=== PATIENT | female | born 1975 | race African-American/Black ===

== ENCOUNTER 2020-05-14 08:32 | Outpatient (REF) | payer MEDICAID, SELFPAY | END 2020-05-14 08:33 | disposition home or self-care (01) | LOC: HO.SCI 08:32 | DX: Z13.89 Encounter for screening for other disorder (principal) ==

== ENCOUNTER 2020-10-02 10:08 | Outpatient (REF) | payer MEDICAID, SELFPAY ==
--- NOTE | ~2020-10-02 | MM_ITS ---
EXAMINATION: MM SCREENING DIGITAL BREAST TOMOSYNTHESIS, BILATERAL CLINICAL INFORMATION: Screening. Asymptomatic. Family history breast cancer, maternal grandmother. The lifetime risk of breast cancer based on the Tyrer-Cuzick Model is 11%. COMPARISON: Report outside exam from [facility] dated 11/26/2016 and 09/04/2015 (outside images not received to date). TECHNIQUE: Digital breast tomosynthesis is performed in both the craniocaudal and mediolateral oblique views along with computer-aided detection (CAD). Synthesized 2D images are generated from the tomosynthesis. FINDINGS: The breasts are heterogeneously dense, which may obscure small masses (ACR BI-RADS breast composition Category c). Breast tissue composition borders on average fibroglandular. There is fine fibronodular parenchymal pattern. There is no significant mass or architectural abnormality. Some scattered vascular and round and rim predominantly dermal calcifications are present. The axilla and skin contours are unremarkable. MM/MM tomosynthesis screening BI IMPRESSION: No mammographic evidence of malignancy. ASSESSMENT: BI-RADS 2: Benign RECOMMENDATION: 1. Routine annual mammography screening. 2. Radiology department will attempt to retrieve outside mammography to allow for comparison in an addendum report. This patient's information was entered into a reminder system with a target due date for their next mammogram.
== END 2020-10-02 10:09 | disposition home or self-care (01) ==
LOC: HO.MAMMO 10:08
PROVIDERS: PCP Nurse Practitioner Family; Visit Provider Nurse Practitioner Family
DX: Z12.31 Encounter for screening mammogram for malignant neoplasm of breast (principal)
CPT/HCPCS: 77063; 77067

== ENCOUNTER 2020-12-12 14:50 | Outpatient (REF) | payer MEDICAID, SELFPAY ==
[2020-12-12 16:58] LABS: Blood Urea Nitrogen 10 mg/dL (9-16); Estimated Glomerular Filt Rate > 60
== END 2020-12-12 14:51 | disposition home or self-care (01) ==
LOC: HO.MRI 14:50
PROVIDERS: PCP Nurse Practitioner Family; Visit Provider Nurse Practitioner Family
DX: G35 Multiple sclerosis (principal); Z86.69 Personal history of other diseases of the nervous system and sense organs
CPT/HCPCS: 36415; 82565; 84520

== ENCOUNTER 2020-12-17 17:29 | Outpatient (REF) | payer MEDICAID, SELFPAY ==
--- NOTE | ~2020-12-17 | MR_ITS ---
EXAMINATION: MR BRAIN WITHOUT AND WITH CONTRAST CLINICAL INFORMATION: 45-year-old with complaints of headache, occipital numbness and decreased vision with positive family history of MS and epilepsy. COMPARISON: None. TECHNIQUE: Multiplanar, multisequence MRI of the brain was obtained before and after the intravenous administration of 8 mL Gadavist. FINDINGS: Brain Volume: Within normal limits. Structural: No malformations. Brain and Meninges: DWI sequence demonstrates no restricted diffusion to suggest acute or subacute cerebral ischemia. The brain is normal in morphology and signal intensity. Gradient echo imaging demonstrates no evidence for hemorrhage, hemosiderin staining or abnormal mineral deposition. No intracranial mass lesions, abnormal enhancement, space-occupying process or mass effect are identified. Ventricles and Subarachnoid Spaces: The ventricular system and subarachnoid spaces are within normal limits, without hydrocephalus. Orbital Structures: The globes have a slightly ovoid appearance which is nonspecific but could be secondary to myopia. There is a moderate degree of bilateral proptosis, which is nonspecific. Otherwise, the visualized orbital structures are grossly unremarkable within the limitations of the study. Vascular: There is somewhat asymmetrically diminished signal void in the right cavernous carotid artery, the significance of which is uncertain. MRA suggested to further assess this. Otherwise, signal voids are seen in the visualized major intracranial vessels. Sinuses and Osseous Structures: There is mucosal thickening in the ethmoid complex and maxillary sinuses bilaterally and there is a 2.1 cm retention cyst in the left maxillary sinus. Osseous structures appear grossly unremarkable. There is a subcentimeter round zone of intermediate T1 signal which appears isointense to muscle on T1 and hypointense on T2 located in the left prestyloid parapharyngeal space medial to the deep lobe of the left parotid gland. MR/MR head/brain wo/w con IMPRESSION: 1. Normal appearance to the brain parenchyma and ventricular system with no evidence for focal lesion or abnormal enhancement, mass effect, hydrocephalus or hemorrhage. 2. Somewhat diminished signal void in the right cavernous carotid artery which may be artifactual but MRA is suggested to further assess this. 3. Paranasal sinus inflammatory changes as discussed above. 4. Subcentimeter nodular structure in the prestyloid parapharyngeal space on the left incidentally noted. Differential diagnostic considerations could include an incidental minor salivary gland tumor or possibly a nerve sheath tumor. MRI of the soft tissue neck without and with contrast is recommended to further assess this. 5. Bilateral proptosis and globe deformities. Recommend ophthalmologic correlation. The [facility] staff will call to confirm receipt of this report with acknowledgement of the findings and any recommendations.
== END 2020-12-17 17:30 | disposition home or self-care (01) ==
LOC: HO.MRI 17:29
PROVIDERS: Visit Provider Nurse Practitioner Family
DX: R29.898 Other symptoms and signs involving the musculoskeletal system (principal); Z82.0 Family history of epilepsy and other diseases of the nervous system
CPT/HCPCS: 70553; A9585

== ENCOUNTER 2021-02-26 16:58 | Outpatient (REF) | payer MEDICAID, SELFPAY ==
--- NOTE | ~2021-02-26 | MR_ITS ---
EXAMINATION: MR ANGIOGRAPHY BRAIN WITHOUT CONTRAST CLINICAL INFORMATION: Undergoing follow-up study to previous examination suggesting diminished signal void in the right cavernous carotid artery. COMPARISON: 12/23/2020 MRI TECHNIQUE: 3-D [id number] MR angiography of the intracranial circulation was done. FINDINGS: Anterior Circulation: The horizontal petrous segments of both intracranial internal carotid arteries are symmetric and normal in caliber with good flow-related enhancement. There is mildly to moderately diminished caliber of the vertical petrous, precavernous, cavernous, ophthalmic, and supraclinoid segments of the right ICA when compared to the left without significant focal stenosis or segmental occlusion. Small zones of signal loss are seen within the carotid siphon on the right which are likely artifactual. A small PCOM infundibulum is noted with good visualization of the right posterior communicating artery which otherwise appears normal. The left intracranial internal carotid artery is normal in caliber throughout with foci of curvilinear signal loss in the ophthalmic segment likely artifactual. The left posterior communicating artery is visualized and appears normal. Both A1 segments are visualized with the left being dominant with a normal appearance to the anterior communicating artery and both A2 segments. The M1 segments are bilaterally symmetric and are normal in caliber with a normal appearance to the M2 branches. Posterior Circulation: The intradural vertebral arteries are partially cut off from the [id number]. The visualized portions of the intradural vertebral arteries are normal in caliber with the left being dominant. The basilar artery is smoothly contoured and normal in caliber with a normal appearance to the superior cerebellar and posterior cerebral arteries bilaterally. No intracranial aneurysms or high flow vascular malformations. MR/MR angio head wo con IMPRESSION: 1. No evidence for right ICA significant stenosis or occlusion. The caliber of the right carotid siphon is mildly to moderately diminished compared to the left, the significance of which is uncertain as there is no definite significant luminal irregularity to suggest atheromatous plaque. 2. Otherwise normal intracranial MRA.
--- NOTE | ~2021-02-26 | MR_ITS ---
EXAMINATION: MRI SOFT TISSUE NECK WITHOUT AND WITH CONTRAST CLINICAL INFORMATION: Anesthesia of skin and cervicalgia with visual disturbances. COMPARISON: 12/17/2020 MR brain. TECHNIQUE: MRI of the soft tissue neck was obtained using routine sequences without and with contrast. Intravenous contrast: Gadavist 8 mL. FINDINGS: SKULL BASE: The visualized intracranial structures are within normal limits and demonstrate no abnormal enhancement. Skull base structures appear grossly intact within the limitations of the study. There is mucosal thickening in the right maxillary sinus similar to the previous exam and there is a 2.3 cm probable retention cyst in the left maxillary sinus, which was noted on prior study. SUPRAHYOID NECK: Redemonstrated is a T1 hypointense nodule measuring approximately 6.5 x 8 mm in greatest transaxial dimensions, which appears to be located within the deep lobe of the left parotid gland and displays enhancement at its periphery with a central focus of hypoenhancement, consistent with a parotid neoplasm. There has been no significant interval change in size from the previous study. The trigeminal fat pads appear normal in signal. Small lateral retropharyngeal lymph nodes are noted which are not pathologically enlarged. The nasopharynx, snowsport instructor and parapharyngeal spaces are otherwise unremarkable. The right parotid gland is normal in morphology and signal intensity. The oropharynx, oral tongue, base of the tongue and floor of the mouth structures are within normal limits. The submandibular glands appear within normal limits. There are multiple nonenlarged lymph nodes in the submandibular space bilaterally and right submental space. There are multiple nonenlarged bilateral suprahyoid IJ chain lymph nodes at levels IIa and IIb. There is a single mildly prominent 12 x 5 mm level IIb lymph node on the left. The epiglottis and vallecula appear normal. INFRAHYOID NECK: The hypopharynx, larynx and thyroid gland are within normal limits. There is a 1.1 x 0.7 cm enlarged upper right paratracheal lymph node posterior to the right thyroid lobe. VASCULAR: Signal voids are seen within the visualized major arterial vessels within the neck and within the IJ veins. UPPER CHEST: The visualized upper thorax appears grossly unremarkable within the limitations of the study. SKELETAL: Osseous structures appear unremarkable. OTHER COMMENTS: None. MR/MR orbits face neck wo/w con IMPRESSION: 1. Subcentimeter enhancing nodule in the deep lobe of the left parotid gland consistent with a small parotid neoplasm. Suggest ENT consultation for further workup. 2. Mildly enlarged level IIb lymph node on the left and a mildly enlarged upper right paratracheal lymph node posterior to the right thyroid lobe of indeterminate significance. Recommend follow-up CT of the neck with contrast to reassess in 6 months. 3. Paranasal sinus findings as discussed above.
[2021-02-26 17:25] LABS: Anion Gap 11 (12-20); Blood Urea Nitrogen 11 mg/dL (9-16); Calcium 9.1 mg/dL (8.4-10.2); Carbon Dioxide 26 mmol/L (22-29); Chloride 104 mmol/L (96-108); Estimated Glomerular Filt Rate > 60; Glucose Random 110 mg/dL (60-115); Potassium 3.9 mmol/L (3.3-5.1); Sodium 137 mmol/L (135-145)
== END 2021-02-26 16:59 | disposition home or self-care (01) ==
LOC: HO.MRI 16:58
PROVIDERS: PCP Nurse Practitioner Family; Visit Provider Nurse Practitioner Family
DX: M54.2 Cervicalgia (principal); R29.898 Other symptoms and signs involving the musculoskeletal system; Z82.0 Family history of epilepsy and other diseases of the nervous system; R20.0 Anesthesia of skin; H53.9 Unspecified visual disturbance
CPT/HCPCS: 36415; 70543; 70544; 80048; A9585

== ENCOUNTER 2021-04-16 16:14 | Outpatient (REF) | payer MEDICAID, SELFPAY ==
--- NOTE | ~2021-04-16 | XR_ITS ---
EXAMINATION: XR CHEST CLINICAL INFORMATION: Nonspecific reaction to drug. COMPARISON: None TECHNIQUE: 2 views of the chest were obtained. FINDINGS: No significant abnormality is noted involving the heart, lungs, mediastinum, bony thorax or soft tissues. XR/XR chest 2V IMPRESSION: Unremarkable chest examination.
== END 2021-04-16 16:15 | disposition home or self-care (01) ==
LOC: HO.XRAY 16:14
PROVIDERS: PCP Nurse Practitioner Family; Visit Provider Nurse Practitioner Family
DX: R76.12 Nonspecific reaction to cell mediated immunity measurement of gamma interferon antigen response without active tuberculosis (principal)
CPT/HCPCS: 71046

== ENCOUNTER 2021-11-28 16:56 | Outpatient (REF) | payer MEDICAID, SELFPAY ==
--- NOTE | ~2021-11-28 | XR_ITS ---
EXAMINATION: 1. RADIOGRAPHS LUMBAR SPINE 2. RADIOGRAPHS RIGHT HIP 3. RADIOGRAPHS LEFT HIP CLINICAL INFORMATION: Pain within the lumbar spine and both hips COMPARISON: None TECHNIQUE: 3 views of the lumbar spine and 2 views of each hip were obtained. FINDINGS: Lumbar spine: 5 nonrib-bearing lumbar vertebral bodies are visualized. Alignment is within normal limits. Lumbar vertebral body heights are maintained. Mild narrowing of the L4/L5 disc space height. Other disc space heights are maintained throughout the lumbar spine. Sacral iliac joints are symmetric. Right hip: Visualized portion of the proximal right femur demonstrate no fracture. Right femoral head is well-seated within the acetabulum. Right femoral acetabular joint space is well-maintained. There is a prominent enthesophyte off the lateral aspect of the right ilium although it appears superior to the acetabulum and likely not affecting the right acetabular joint. Left hip: Visualized portion of proximal left femur demonstrate no fracture. Left femoral head is well-seated within the acetabulum. Left femoral acetabular joint space is well-maintained. No appreciable degenerative changes of the left hip. XR/XR hip LT min 2V IMPRESSION: -Mild degenerative changes of the lumbar spine at the L4/L5 level. -No significant degenerative changes, fracture or dislocation of either hip.
--- NOTE | ~2021-11-28 | XR_ITS ---
EXAMINATION: 1. RADIOGRAPHS LUMBAR SPINE 2. RADIOGRAPHS RIGHT HIP 3. RADIOGRAPHS LEFT HIP CLINICAL INFORMATION: Pain within the lumbar spine and both hips COMPARISON: None TECHNIQUE: 3 views of the lumbar spine and 2 views of each hip were obtained. FINDINGS: Lumbar spine: 5 nonrib-bearing lumbar vertebral bodies are visualized. Alignment is within normal limits. Lumbar vertebral body heights are maintained. Mild narrowing of the L4/L5 disc space height. Other disc space heights are maintained throughout the lumbar spine. Sacral iliac joints are symmetric. Right hip: Visualized portion of the proximal right femur demonstrate no fracture. Right femoral head is well-seated within the acetabulum. Right femoral acetabular joint space is well-maintained. There is a prominent enthesophyte off the lateral aspect of the right ilium although it appears superior to the acetabulum and likely not affecting the right acetabular joint. Left hip: Visualized portion of proximal left femur demonstrate no fracture. Left femoral head is well-seated within the acetabulum. Left femoral acetabular joint space is well-maintained. No appreciable degenerative changes of the left hip. XR/XR lumbar spine 2-3V IMPRESSION: -Mild degenerative changes of the lumbar spine at the L4/L5 level. -No significant degenerative changes, fracture or dislocation of either hip.
--- NOTE | ~2021-11-28 | XR_ITS ---
EXAMINATION: 1. RADIOGRAPHS LUMBAR SPINE 2. RADIOGRAPHS RIGHT HIP 3. RADIOGRAPHS LEFT HIP CLINICAL INFORMATION: Pain within the lumbar spine and both hips COMPARISON: None TECHNIQUE: 3 views of the lumbar spine and 2 views of each hip were obtained. FINDINGS: Lumbar spine: 5 nonrib-bearing lumbar vertebral bodies are visualized. Alignment is within normal limits. Lumbar vertebral body heights are maintained. Mild narrowing of the L4/L5 disc space height. Other disc space heights are maintained throughout the lumbar spine. Sacral iliac joints are symmetric. Right hip: Visualized portion of the proximal right femur demonstrate no fracture. Right femoral head is well-seated within the acetabulum. Right femoral acetabular joint space is well-maintained. There is a prominent enthesophyte off the lateral aspect of the right ilium although it appears superior to the acetabulum and likely not affecting the right acetabular joint. Left hip: Visualized portion of proximal left femur demonstrate no fracture. Left femoral head is well-seated within the acetabulum. Left femoral acetabular joint space is well-maintained. No appreciable degenerative changes of the left hip. XR/XR hip RT min 2V IMPRESSION: -Mild degenerative changes of the lumbar spine at the L4/L5 level. -No significant degenerative changes, fracture or dislocation of either hip.
== END 2021-11-28 16:57 | disposition home or self-care (01) ==
LOC: HO.XRAY 16:56
PROVIDERS: PCP Nurse Practitioner Family; Visit Provider Nurse Practitioner Family
DX: M25.551 Pain in right hip (principal); M25.552 Pain in left hip; M54.50 Low back pain, unspecified
CPT/HCPCS: 72100; 73502

== ENCOUNTER 2022-02-27 16:34 | Outpatient (REF) | payer MEDICAID, SELFPAY ==
--- NOTE | ~2022-02-27 | MR_ITS ---
EXAMINATION: MRI NECK WITHOUT AND WITH CONTRAST CLINICAL INFORMATION: Neoplasm of the parotid gland. COMPARISON: Neck MRI from 02/26/2021. TECHNIQUE: MRI of the neck was obtained using routine sequences without and with contrast. Intravenous contrast: Gadavist 8.5 mL. FINDINGS: Redemonstrated peripherally enhancing lesion within the deep lobe of the left parotid gland, measuring 0.8 x 0.8 x 0.7 cm (similar to exam from 2020). Unchanged 0.7 cm nodule in the inferior tip of the superficial lobe of the left parotid gland suggestive of a intraparotid lymph node. Mildly prominent left level II lymph nodes appear unchanged compared to prior exam, measuring up to 1.4 cm in left level IIa and 1.1 cm in left level IIb. Otherwise, scattered subcentimeter lymph nodes bilaterally, none of which are pathologically enlarged or abnormally enhancing. No significant cutaneous thickening or subcutaneous inflammation. No discrete fluid collection within the deep tissues of the neck. The premaxillary, retromaxillary, pterygopalatine fossa, orbital apical, parapharyngeal, and prelaryngeal adipose tissue is maintained. Otherwise, normal appearance of the parotid, submandibular, and thyroid glands. No demonstrated focal lesion or abnormal enhancement within the intrinsic tissues of the tongue or floor of mouth. Normal mucosal contours of the pharynx and larynx without abnormal enhancement. Normal appearance of the hyoid bone, thyroid cartilage, or cartilaginous trachea. The airways remains widely patent. No radiopaque foreign bodies. The atlantooccipital and atlantoaxial articulations remain well aligned. There is anatomic alignment of the vertebral bodies and posterior elements. No evidence of acute fracture or subluxation of the cervical spine. The vertebral body heights are maintained. Moderate degenerative disc disease at C5-C6 with central disc protrusion and associated mild spinal canal stenosis. Otherwise, the Intervertebral disc spaces are maintained. No evidence of epidural collection. There is no prevertebral soft tissue swelling. The visualized portion of the skull base is without significant abnormalities. Moderate mucosal thickening of the paranasal sinuses. Mucous retention cysts within the left maxillary sinus. No signal abnormalities within the mastoids. CT Upper Chest: The visualized lung apices and upper mediastinum are within normal limits. MR/MR orbits face neck wo/w con IMPRESSION: 1. 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 2. Stable appearance of nonspecific mildly prominent left upper cervical chain lymph nodes. 3. A disc protrusion at C5-C6 has progressed compared to prior exam now with mild spinal canal stenosis.
== END 2022-02-27 16:35 | disposition home or self-care (01) ==
LOC: HO.MRI 16:34
PROVIDERS: Visit Provider Otolaryngology
DX: D37.030 Neoplasm of uncertain behavior of the parotid salivary glands (principal)
CPT/HCPCS: 70543; A9585

== ENCOUNTER 2022-11-20 16:38 | Outpatient (REF) | payer MEDICAID, SELFPAY ==
[2022-11-20 17:40] LABS: MANUAL DIFF FLAG NO
[2022-11-20 17:56] LABS: Basophils Absolute Auto 0.1 X10*3/uL (0.0-0.2); Basophils Percent Auto 1.5 % (0-2); Eosinophils Absolute Auto 0.4 X10*3/uL (0.0-0.4); Eosinophils Percent Auto 5.7 % (0-4); Hematocrit 41.2 % (37.0-47.0); Hemoglobin 13.6 g/dl (12.0-16.0); Imm Gran Abs Auto 0.01 X10*3/uL (0.00-0.03); Imm Gran Pct Auto 0.1 % (0.0-0.4); Lymphocytes Absolute Auto 3.5 X10*3/uL (1.2-4.9); Lymphocytes Percent Auto 47.6 % (20-40); Mean Corpuscular Hemoglobin 30.4 pg (27.0-33.0); Mean Corpuscular Volume 92.2 fL (80.0-98.0); Mean Platelet Volume 10.9 fL (9.4-12.3); Monocytes Absolute Auto 0.6 X10*3/uL (0.1-1.2); Monocytes Percent Auto 7.8 % (2-11); Neutrophils Absolute Auto 2.8 x10*3/uL (2.0-8.3); Neutrophils Percent Auto 37.3 % (45-73); Platelet Count 364 X10*3/uL (160-400); Red Blood Count 4.47 X10*6/uL (4.20-5.50); Red Cell Distribution Width 12.4 % (11.0-16.0); White Blood Count 7.4 X10*3/uL (4.8-10.8)
[2022-11-20 18:19] LABS: B Type Natriuretic Peptide < 10 pg/mL (<100)
[2022-11-20 18:25] LABS: Alanine Aminotransferase 31 U/L (0-31); Albumin Level 4.4 g/dL (3.5-5.0); Alkaline Phosphatase 69 U/L (39-117); Anion Gap 10 (12-20); Aspartate Amino Transferase 27 U/L (5-31); Bilirubin Total 0.2 mg/dL (0.0-1.0); Blood Urea Nitrogen 16 mg/dL (9-16); Calcium 9.9 mg/dL (8.4-10.2); Carbon Dioxide 30 mmol/L (22-29); Chloride 106 mmol/L (96-108); Estimated Glomerular Filt Rate > 60; Glucose Random 71 mg/dL (60-115); Iron 100 mcg/dL (30-160); Percent Iron Saturation 28 % (15-50); Sodium 142 mmol/L (135-145); Total Iron Binding Capacity 355 mcg/dL (228-428); Total Protein 7.5 g/dL (6.5-8.0); Unsaturated Iron Binding 255 ug/dL
[2022-11-20 18:36] LABS: Ferritin 116 ng/mL (10-250)
== END 2022-11-20 16:39 | disposition home or self-care (01) ==
LOC: HO.HHCL 16:38
PROVIDERS: Visit Provider Registered Nurse
DX: R76.11 Nonspecific reaction to tuberculin skin test without active tuberculosis (principal); R60.0 Localized edema; R42 Dizziness and giddiness
CPT/HCPCS: 36415; 80053; 82728; 83540; 83880; 85025; 86481

== ENCOUNTER 2023-01-19 11:42 | Outpatient (AMB) | payer MEDICAID, SELFPAY ==
--- NOTE | 2023-01-19 11:44 | A.OFFVIS_ITS ---
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 Pt states not as bad as it was s/p medication adjustments. Pt states she does get occasional cramps in calves and feet. 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 Complaints include pain over varicosities, swelling of lower extremities, cramping, fatigue, and heaviness of the lower extremities. It has been affecting there daily activities including walking. It is noted more so in right leg. She did notice some decrease in swelling when starting amlodipine. In addition she does smoke about a pack a day. Patient denies any previous venous surgery or injections. Patient denies any history of DVT/ PE. Patient denies any history of phlebitis. Trial of compression includes - [id number] They now present for vascular evaluation regarding their varicose veins. [facility] Medical History (Updated 01/26/23 @ 09:10 by Viriglio Gan MD) Hypertension Surgical History (Updated 01/19/23 @ 11:52 by SANDRA Vinson) H/O: hysterectomy Social History (Updated 01/19/23 @ 11:51 by SANDRA Vinson) Patient Tobacco Use Status: Current everyday Tobacco user Cigarette Packs Per Day: 0.75 Review of Systems Const Reports as per HPI ENT Reports no additional complaints Card Denies chest pain, Denies chest pain at rest and Denies chest pain with activity Resp Denies chest congestion and Denies cough GI Reports no additional complaints Musc Details: pain over varicosities, aching of lower extremities, swelling, cramping, heaviness and tiredness, itching Denies abnormal gait Skin/Breast Reports pruritus and Denies wounds Neuro Reports no additional complaints and Denies abnormal gait Psych Denies no additional complaints Physical Exam Vital Signs: BMI result Body Mass Index 29.0 Const General: cooperative, healthy appearing and comfortable Orientation/consciousness: oriented to person, oriented to place and oriented to time Neck Carotids: no bruits Chest Chest palpation & inspection: normal inspection of the chest and normal palpation of entire chest wall Resp Effort & Inspection: normal respiratory effort and able to speak in complete sentences Cardio Rate: regular rate Heart sounds: S1 normal heart sound present and S2 normal heart sound present Peripheral pulses: Peripheral pulses 2+ throughout GI Inspection: Yes normal to inspection Skin Other: +2 edema General skin exam: dry skin Neuro General: oriented to person, oriented to place and oriented to time Extrem Right lower extremity: full ROM, normal capillary refill and edema Left lower extremity: full ROM, normal capillary refill and edema Psych Mental Status: mental status grossly normal Assessment & Plan Assessment & Plan (1) Varicose veins of right lower extremity with inflammation: Code(s): I83.11 - Varicose veins of right lower extremity with inflammation Plan: In short, the patient has evidence of venous insufficiency. I have discussed the pathophysiology with the patient. In addition I have provided informational material regarding venous disease to the patient. We have discussed conservative measures including compression, elevation, and exercise. I have also provided a handout regarding appropriate use of compression stockings and where to purchase good compression stockings as well. I have taken the liberty of ordering venous insufficiency testing with the patient. They will follow up with me after testing. The patient had an opportunity to ask questions regarding the treatment plan. All questions were answered. Imaging studies, laboratory studies and physical exam results were discussed and reviewed in detail. No major barriers to understanding were identified. The patient expressed understanding and agreement with the above treatment plan. The patient is aware they should contact our office by phone for worsening of the current condition or the appearance of new symptoms. Thank you for allowing me to participate in the vascular care of this patient. If you have any questions or concerns regarding the treatment for the above condition please do not hesitate to contact me. The office telephone contact is [phone]. This note is constructed using voice recognition software. While every effort has been made to ensure accuracy, gamma ray operator errors may have been included. Thank you for allowing me to participate in the care of your patient. Yours sincerely, Virgilio Gan MD, FACS, R.P.V.I. Orders: Orders US venous duplex LE BI 1 Week I83.11 - Varicose veins of right lower extremity with inflammation Coding Level of Care Code New Pt Level 4 (90768) Diagnoses Varicose veins of right lower extremity with inflammation I83.11
[2023-01-19 11:46] VITALS: BMI 29.0
== END 2023-01-19 12:07 | disposition home or self-care (01) ==
PROVIDERS: PCP Nurse Practitioner Family; Visit Provider Surgery Vascular Surgery
DX: I83.11 Varicose veins of right lower extremity with inflammation (principal)
CPT/HCPCS: 99203

== ENCOUNTER 2023-03-17 12:09 | Outpatient (REF) | payer MEDICAID, SELFPAY ==
--- NOTE | ~2023-03-17 | XR_ITS ---
EXAMINATION: XR CHEST CLINICAL INFORMATION: Positive QuantiFERON COMPARISON: 04/16/2021 TECHNIQUE: 2 views of the chest were obtained. FINDINGS: No significant abnormality is noted involving the heart, lungs, mediastinum, bony thorax or soft tissues. XR/XR chest 2V IMPRESSION: Unremarkable examination with no interval change.
[2023-03-20 00:54] LABS: TS Negative Control Passed; TS Panel A 1; TS Panel B 2; TS Positive Control Passed; TSpotTB Negative (Negative)
== END 2023-03-17 12:10 | disposition home or self-care (01) ==
LOC: HO.HHCL 12:09
PROVIDERS: Visit Provider Registered Nurse
DX: R76.11 Nonspecific reaction to tuberculin skin test without active tuberculosis (principal)
CPT/HCPCS: 36415; 71046; 86481

== ENCOUNTER 2023-05-10 12:56 | Outpatient (REF) | payer MEDICAID, SELFPAY ==
--- NOTE | ~2023-05-10 | MM_ITS ---
EXAMINATION: MM DIAGNOSTIC DIGITAL BREAST TOMOSYNTHESIS, BILATERAL CLINICAL INFORMATION: Follow-up from [facility] breast and [facility] [place] six-month follow-up recommendation right breast. Patient complaining of breast pain in the inferior left breast. Please note, the patient could not stay for completion of bilateral diagnostic ultrasound, which will have to be performed on a separate appointment. COMPARISON: Mammography: 09/04/2022, and 09/16/2022 mammography ([facility]) and 09/16/2022 right breast ultrasound ([facility]) TECHNIQUE: Digital breast tomosynthesis is performed in both the craniocaudal and mediolateral oblique views along with computer-aided detection (CAD). Synthesized 2D images are generated from the tomosynthesis. FINDINGS: There are scattered areas of fibroglandular density (ACR BI-RADS breast composition Category b). In reviewing the [facility] examinations of 09/04/2022, and 09/16/2022, the 09/16/2022 report is somewhat vague in regard to findings, with explanation of resolution of previously seen asymmetry in the right breast, and no ultrasound correlate, however then goes on to recommend six-month follow-up to evaluate findings which were just suggested to not persist. On the current study, within the RIGHT breast, upper outer quadrant, middle one third depth, there is an oval circumscribed isodense mass measuring 8 mm in diameter, approximately 7 cm from the nipple. There is a probable correlate within the lateral right breast on the CC projection, also 7 cm from the nipple, measuring 8 mm in diameter, oval and circumscribed, partially obscured within an island of dense breast parenchyma. This appears to represent the same abnormality as described in the [facility] examination of 09/04/2022. It demonstrated a small fatty hilum on that examination, highly suggestive of a normal intramammary lymph node. When comparing with 10/02/2020 examination, this oval mass appears present in the same lateral location and appears largely unchanged, highly suggesting benignity. For clarification, a small paddle spot RIGHT MLO compression view of this region is recommended, as well as small paddle spot CC compression view in the lateral region. Ultrasound may be required as an adjunct. There are no suspicious findings in the LEFT breast identified. Specifically, no mammographic abnormality is seen in the inferior left breast in the region of purported breast pain. This area requires ultrasound for further evaluation. MM/MM tomosynthesis diagnostic BI IMPRESSION: Probably benign findings RIGHT breast, most likely related to normal/benign intramammary lymph node which appears to have been present and essentially unchanged since 10/02/2020. To clarify findings, recommend additional imaging of the RIGHT breast as described above. No suspicious findings in the LEFT breast. No mammographic abnormality in the inferior left breast to correlate with the region of purported breast pain. Targeted ultrasound will be required. ASSESSMENT: BI-RADS BI-RADS 0 - Incomplete: Needs additional Imaging. RECOMMENDATION: Additional Imaging required
== END 2023-05-10 12:57 | disposition home or self-care (01) ==
LOC: HO.MAMMO 12:56
PROVIDERS: Visit Provider Student in an Organized Health Care Education/Training Program
DX: R92.8 Other abnormal and inconclusive findings on diagnostic imaging of breast (principal); N64.4 Mastodynia
CPT/HCPCS: 77062; 77066

== ENCOUNTER → 2023-05-10 13:00 | Outpatient (BNV) | payer MEDICAID, SELFPAY | PROVIDERS: Visit Provider Radiology Diagnostic Radiology | DX: N64.4 Mastodynia (principal); N63.15 Unspecified lump in the right breast, overlapping quadrants | CPT/HCPCS: 77062; 77066 ==

== ENCOUNTER 2023-05-13 12:30 | Outpatient (REF) | payer MEDICAID, SELFPAY ==
--- NOTE | ~2023-05-13 | US_ITS ---
EXAMINATION: MM DIAGNOSTIC DIGITAL BREAST TOMOSYNTHESIS, RIGHT US BREAST LIMITED, BILATERAL MAMMOGRAPHY: CLINICAL INFORMATION: Evaluate left breast pain lower outer quadrant x6 months. Evaluate oval density previously seen in the approximate 8:00 axis right breast, posterior one third. COMPARISON: Mammography: Bilateral screening 05/10/2023, 09/16/2022 ([facility]), 09/04/2022 ([facility]), and 10/02/2020. Ultrasound: 09/16/2022 right ([facility]) TECHNIQUE: Digital breast tomosynthesis of the right breast was performed in the following views: Full-field right ML 3-D view, 3-D right spot compression CC and MLO views. FINDINGS: There are scattered areas of fibroglandular density (ACR BI-RADS breast composition Category b). There is persistence of an oval 7-8mm circumscribed mass in the right breast, 8:00 axis, posterior one third, consistent with the same mass previously seen on [facility] exam 09/04/2022, which then had no ultrasonographic correlate on 09/16/2022. On today's exam it persists, most notably on the right MLO spot compression view. It is also seen on the full-field right ML view, and in retrospect, can be seen on the 10/02/2020 mammography, unchanged from that study as well, establishing benignity. This is most likely a benign intramammary lymph node. No ultrasound correlate on today's ultrasound exam either. Additional abnormal findings in the right breast. ULTRASOUND: CLINICAL INFORMATION: Evaluate oval small 8 mm mass 8:00 right breast posterior one third. Patient also complaining of left breast pain in the lower outer quadrant. COMPARISON: 09/16/2022. TECHNIQUE: Targeted sonographic evaluation was performed using a high frequency linear transducer. Attention was given to the right lateral breast 6-11 o'clock axes, as well as the left breast lower outer quadrant.. Selected archived documentation. FINDINGS: RIGHT BREAST: There is a mixture of fatty and fibroglandular tissue. No suspicious mass is seen. There is no pathologic acoustic shadowing. The small oval mass could not be visualized at the 8:00 axis or in the lateral right breast. No ultrasonographic correlate. LEFT BREAST: There is a mixture of fatty and fibroglandular tissue. No suspicious mass is seen. There is no pathologic acoustic shadowing. There is no cystic abnormality. There is no ultrasonographic correlate to the region of left breast pain in the inferior left breast. US/US breast BI limited mamm only IMPRESSION: There are no findings in either breast consistent with malignancy. The small oval 8 mm circumscribed mass in the 8:00 axis of the right breast persists on mammography, however cannot be identified on repeat ultrasound. It can be seen on mammography dating back to 10/02/2020, indicating stability over 2 years and benignity. This is most likely a normal benign intramammary lymph node. No further follow-up recommended. The left breast demonstrates no ultrasonographic correlate or mammographic correlate in the region of left breast pain. Clinical management recommended. Otherwise, recommend patient return to routine annual screening to involve both breasts. OVERALL ASSESSMENT: Mammography: BI-RADS 2 - Benign Findings Ultrasound: BI-RADS 2 - Benign Findings RECOMMENDATION: 1. Patient should be managed based on the clinical impression. 2. Otherwise, routine annual screening mammography. This patient's information was entered into a reminder system with a target due date for their next mammogram.
== END 2023-05-13 12:31 | disposition home or self-care (01) ==
LOC: HO.MAMMO 12:30
PROVIDERS: PCP Student in an Organized Health Care Education/Training Program; Visit Provider Student in an Organized Health Care Education/Training Program
DX: R92.8 Other abnormal and inconclusive findings on diagnostic imaging of breast (principal)
CPT/HCPCS: 76642; 77061; 77065

== ENCOUNTER → 2023-05-13 13:00 | Outpatient (BNV) | payer MEDICAID, SELFPAY | PROVIDERS: PCP Student in an Organized Health Care Education/Training Program; Visit Provider Radiology Diagnostic Radiology | DX: N63.13 Unspecified lump in the right breast, lower outer quadrant (principal) | CPT/HCPCS: 76642; 77061; 77065 ==

== ENCOUNTER 2023-06-02 13:37 | Outpatient (REF) | payer MEDICAID, SELFPAY ==
[2023-06-02 16:18] LABS: Hematocrit 41.6 % (37.0-47.0); Hemoglobin 14.1 g/dl (12.0-16.0); Mean Corpuscular HGB Conc 33.9 g/dl (31.0-35.0); Mean Corpuscular Hemoglobin 31.3 pg (27.0-33.0); Mean Corpuscular Volume 92.4 fL (80.0-98.0); Mean Platelet Volume 10.8 fL (9.4-12.3); Platelet Count 392 X10*3/uL (160-400); Red Cell Distribution Width 12.6 % (11.0-16.0); White Blood Count 5.9 X10*3/uL (4.8-10.8)
[2023-06-02 16:25] LABS: Estimated Average Glucose 97 mg/dL
[2023-06-02 16:37] LABS: Alanine Aminotransferase 15 U/L (0-31); Albumin Level 4.4 g/dL (3.5-5.0); Alkaline Phosphatase 68 U/L (39-117); Anion Gap 13 (12-20); Aspartate Amino Transferase 17 U/L (5-31); Bilirubin Total 0.4 mg/dL (0.0-1.0); Blood Urea Nitrogen 11 mg/dL (9-16); Calcium 9.5 mg/dL (8.4-10.2); Carbon Dioxide 25 mmol/L (22-29); Chloride 105 mmol/L (96-108); Cholesterol 194 mg/dL (<200); Estimated Glomerular Filt Rate > 60; Glucose Random 91 mg/dL (60-115); HDL Cholesterol 63 mg/dL (>40); LDL Cholesterol Calculated 118 mg/dL (<100); Potassium 4.3 mmol/L (3.3-5.1); Sodium 139 mmol/L (135-145); Total Protein 7.6 g/dL (6.5-8.0); Triglycerides 68 mg/dL (<150)
[2023-06-02 16:46] LABS: TSH reflex Free T4 0.89 uIU/mL (0.32-4.0)
[2023-06-02 16:59] LABS: Creatinine Urine 98.72 mg/dL; Microalbumin Urine < 5.0 mg/L
[2023-06-03 04:03] LABS: Syphilis Screen Nonreactive (Nonreactive)
[2023-06-03 04:25] LABS: HBS Num1 > 1000.00 mIU/mL (0-7.99); HBc Num1 5.84 S/CO (0.00-0.79); HIV AB/AG Nonreactive (Nonreactive); HIV Num 1 0.06 S/CO (0.00-0.99); Hepatitis B Surface Antigen Negative (Negative); ~HepC Num1 0.16 S/CO (0.00-0.79); ~Hepatitis B Surface Antibody REACTIVE (Nonreactive); ~Hepatitis C Antibody Nonreactive (Nonreactive)
[2023-06-03 05:12] LABS: HBc Num2 6.08 S/CO; HBc Num3 5.67 S/CO; Hepatitis B Core Antibody Reactive (Nonreactive)
[2023-06-03 05:29] LABS: CT PCR NOT DETECTED (Not Detect.); NG PCR NOT DETECTED (Not Detect.)
== END 2023-06-02 13:38 | disposition home or self-care (01) ==
LOC: HO.HHCL 13:37
PROVIDERS: Visit Provider Student in an Organized Health Care Education/Training Program
DX: Z00.00 Encounter for general adult medical examination without abnormal findings (principal)
CPT/HCPCS: 0353U; 36415; 80053; 80061; 82570; 83036; 84443; 85027; 86704; 86706; 86780; 86803; 87340; 87389

== ENCOUNTER 2023-07-01 14:19 | Outpatient (REF) | payer MEDICAID, SELFPAY ==
[2023-07-07 21:04] LABS: C. trachomatis RNA TMA NOT DETECTED (NOT DETECTED); N. gonorrhoeae RNA TMA NOT DETECTED (NOT DETECTED)
[2023-07-08 00:04] LABS: Trichomonas (NAAT) DETECTED (NOT DETECTED)
[2023-07-08 09:33] LABS: HPV mRNA E6/E7 rflx Not Detected (Not Detected)
== END 2023-07-01 14:20 | disposition home or self-care (01) ==
LOC: HO.LNP 14:19
PROVIDERS: Visit Provider Advanced Practice Midwife
DX: Z12.4 Encounter for screening for malignant neoplasm of cervix (principal); Z11.51 Encounter for screening for human papillomavirus (HPV); Z11.3 Encounter for screening for infections with a predominantly sexual mode of transmission
CPT/HCPCS: 87491; 87591; 87624; 87661; 88142

== ENCOUNTER 2023-10-11 17:55 | Outpatient (REF) | payer MEDICAID, SELFPAY ==
[2023-10-12 08:45] LABS: Bacterial Vaginosis PCR POSITIVE (Negative); Candida Group PCR NOT DETECTED (Not Detect); Candida glab krusei PCR NOT DETECTED (Not Detect); Trichomonas vaginalis PCR NOT DETECTED (Not Detect)
== END 2023-10-11 17:56 | disposition home or self-care (01) ==
LOC: HO.HHCLNP 17:55
PROVIDERS: Visit Provider Advanced Practice Midwife
DX: R39.15 Urgency of urination (principal); Z11.3 Encounter for screening for infections with a predominantly sexual mode of transmission
CPT/HCPCS: 0352U; 87086; 87088; 87186

== ENCOUNTER 2023-10-30 07:08 | Emergency (ER) | payer MEDICAID, SELFPAY ==
[2023-10-30 07:19] VITALS: BP 170/80; PULSE 90; O2SAT 100
[2023-10-30 07:23] VITALS: BP 148/87; PULSE 87; RESP 16; TEMP 36.4; O2SAT 99
[2023-10-30 07:24] VITALS: BP 148/87; PULSE 91; RESP 12; TEMP 36.4; O2SAT 100; BMI 29.3
--- NOTE | 2023-10-30 07:42 | ED_ITS ---
HPI - Allergic Reaction General Chief complaint: Allergic Reaction Stated complaint: CONGESTED,ALLERGIC TO CATS,ETOH USE PER EMS Time Seen by Provider: 10/30/23 07:31 Source: patient and EMS Mode of arrival: EMS Limitations: no limitations History of Present Illness ED Provider: DR. Wyman HPI narrative: 48-year-old female came in by EMS for evaluation of sudden onset of facial and upper chest congestion no difficulty breathing, itchiness , numbness around the lips, and difficulty breathing. Patient earlier was exposed cat earlier known to CT allergy patient declined touching the CT or getting close to it, no rash or itching, no sick contacts. Patient admitted to drinking alcohol before the symptoms started. Patient is known to have anxiety that was triggered after symptoms started patient administered oral Benadryl before calling the ambulance. No history of anaphylaxis. In the ED patient is speaking in full sentence, no respiratory distress, no facial swelling. Related Data Home Medications ?Medication ?Instructions ?Recorded ?Confirmed citalopram 30 mg capsule 30 mg PO DAILY 01/19/23 loratadine 5 mg/5 mL oral solution 5 ml PO BID 01/19/23 (Allergy Relief (loratadine)) losartan 50 mg tablet 50 mg PO DAILY 01/19/23 vitamin B complex (B 1 tab PO DAILY 01/19/23 Complex-Vitamin B12 tablet) Allergies Allergy/AdvReac Type Severity Reaction Status Date / Time amoxicillin [From Augmentin] Allergy Intermediate Itching Verified 10/30/23 07:26 clavulanic acid Allergy Intermediate Itching Verified 10/30/23 07:26 [From Augmentin] cat dander [cats] Allergy Runny Nose Verified 10/30/23 07:30 oxycodone [From Percocet] Allergy Anaphylaxis Verified 10/30/23 07:30 strawberries Allergy Intermediate Itching Uncoded 10/30/23 07:26 Sun Allergy Intermediate Hives Uncoded 10/30/23 07:26 Review of Systems 2 Review of Systems: All other systems are reviewed and are negative Constitutional: Reports as per HPI and Reports no additional constitutional complaints Eyes: Reports as per HPI and Reports no additional eye complaints Reports system reviewed and no additional complaints, except as documented Cardiovascular: Reports as per HPI and Reports no additional cardiovascular complaints Respiratory: Reports as per HPI and Reports no additional respiratory complaints Gastrointestinal: Reports as per HPI and Reports no additional gastrointestinal complaints Genitourinary: Reports no additional female genitourinary complaints Musculoskeletal: Reports no additional musculoskeletal complaints Skin/Breast: Reports system reviewed and no additional complaints, except as docu Psychiatric: Reports no additional psychiatric complaints Endocrine: Reports no additional endocrine complaints Hematologic/Lymphatic: Reports no additional hematologic/lymphatic complaints Allergic/Immunologic: Reports no additional allergic/immunologic complaints Reports system reviewed and no additional complaints, except as documented and Reports Abnormal speech present [facility] Past Medical History Medical History Hypertension Surgical History H/O: hysterectomy Social History Social History Patient Tobacco Use Status: Current everyday Tobacco user Cigarette Packs Per Day: 0.75 Advance Directives: No Physical Exam ED Vital Signs: Vital Signs - 24 hr 10/30/23 07:23 10/30/23 07:24 10/30/23 09:45 Temperature 97.6 F 97.6 F 97.8 F Pulse Rate 87 91 82 Respiratory Rate 16 12 21 H Blood Pressure 148/87 H 148/87 H 116/75 Pulse Oximetry 99 100 99 Oxygen Delivery Method Room Air Room Air Room Air BMI result Body Mass Index 29.3 Vital signs have been reviewed and appear to be correct. Blood pressure elevated. Heart rate normal. Respiratory rate normal. Temperature normal. Oxygen saturation normal. Appearance: Alert. Oriented X3. No acute distress. Head: Normal external exam. Normocephalic. Atraumatic. No Bill[place] signs noted. No raccoon eyes noted Eyes: PERRLA. EOMI. Conjunctiva and sclera normal. Eyelids normal. ENT: TM's Normal. Pharynx normal. Uvula midline. Moist mucous membranes. No trismus noted. No drooling noted. No muffled voice noted. Neck: Normal inspection. Neck supple. FROM. No adenopathy. Thyroid Normal. No meningeal signs. No neck mass noted. CVS: Normal heart rate and rhythm. Heart sound normal. No murmurs noted. Pulses normal throughout. Respiratory: No respiratory distress. Painless inspiration. Breath sounds normal. No wheezes/rales/rhonchi noted. Chest nontender. No accessory muscle usage noted or decreased air movement noted. Abdomen: Soft and nontender. Bowel sounds normal in all 4 quadrants. No distention noted. No organomegaly noted. No visible injury noted. Back: No CVA tenderness. Full range of motion noted. Skin: Skin warm and dry. Normal skin color. Normal skin turgor. No rashes/lesions/lacerations noted. Extremities: No lower extremity edema. Extremities exhibit normal range of motion. Extremities nontender. Neuro: Oriented X 3. Cranial nerve exam: II-XII are grossly intact No motor deficit. No sensory deficit. Reflexes normal. Course Reevaluation(s) Reevaluation #1: Patient feels better, no difficulty breathing, no swelling, no stridor, able to speak in full sentence, elevated potassium likely either lab error or hemolysis will repeat. Patient was instructed to avoid exposure to cats. Time: 10:48 Reevaluation #2: Repeat potassium is 4.9 patient is stable to be discharged. Time: 11:55 Medications Administered Discontinued Medications Generic Name Dose Route Start Last Admin Trade Name Freq PRN Reason Stop Dose Admin Diphenhydramine HCl 25 mg 10/30/23 07:39 10/30/23 08:09 Diphenhydramine Hcl 50 Mg/Ml Vial IVPUSH 10/30/23 07:40 25 mg ONCE ONE Administration Famotidine 20 mg 10/30/23 07:39 10/30/23 08:09 Famotidine/Pf 20 Mg/2 Ml Vial IVPUSH 10/30/23 07:40 20 mg ONCE ONE Administration Sodium Chloride 1,000 mls @ 999 mls/hr 10/30/23 07:39 10/30/23 09:23 Ns IV 10/30/23 08:39 Infused .Q1H1M ONE Infusion Methylprednisolone Sodium Succinate 125 mg 10/30/23 07:39 10/30/23 08:07 Methylprednisolone Sod Succ 125 Mg/2 Ml Vial IVPUSH 10/30/23 07:40 125 mg ONCE ONE Administration Medical Decision Making Differential Diagnosis Differential Diagnoses: The differential diagnosis associated with the presentation includes (Allergic reaction, upper airway compromise, dehydration, electrolyte derangement, severe anemia, UTI, .) Admission/Observation Consideration of admission/observation: Escalation of care including admission/observation considered Lab Data MDM Lab Attestation statement: I reviewed the patient's lab results. 10/30/23 08:01 10/30/23 11:20 Labs: Lab Results 10/30/23 10/30/23 10/30/23 Range/Units 08:01 08:05 09:48 WBC 7.6 (4.8-10.8) X10*3/uL RBC 4.65 (4.20-5.50) X10*6/uL Hgb 14.6 (12.0-16.0) g/dl Hct 41.9 (37.0-47.0) % MCV 90.1 (80.0-98.0) fL MCH 31.4 (27.0-33.0) pg MCHC 34.8 (31.0-35.0) g/dl RDW 12.4 (11.0-16.0) % Plt Count 423 H (160-400) X10*3/uL MPV 10.0 (9.4-12.3) fL Immature Gran % (Auto) 0.1 (0.0-0.4) % Neut % (Auto) 54.7 (45-73) % Lymph % (Auto) 34.9 (20-40) % Grainger % (Auto) 6.4 (2-11) % Eos % (Auto) 3.0 (0-4) % Baso % (Auto) 0.9 (0-2) % Lymph # (Auto) 2.7 (1.2-4.9) X10*3/uL Grainger # (Auto) 0.5 (0.1-1.2) X10*3/uL Eos # (Auto) 0.2 (0.0-0.4) X10*3/uL Baso # (Auto) 0.1 (0.0-0.2) X10*3/uL Abs Immat Gran (auto) 0.01 (0.00-0.03) X10*3/uL Absolute Neuts (auto) 4.2 (2.0-8.3) x10*3/uL Absolute Nucleated RBC 0.000 (0.0-0.012) X10*3/uL Nucleated RBC % (auto) 0.0 (0.0-0.2) /100WBC Sodium 145 (135-145) mmol/L Potassium 5.4 H D (3.3-5.1) mmol/L Chloride 113 H (96-108) mmol/L Carbon Dioxide 21 L (22-29) mmol/L Anion Gap 16 (12-20) BUN 7 L (9-16) mg/dL Creatinine 0.70 (0.5-1.4) mg/dL Estim Creat Clear Calc 104.0 Estimated GFR > 60 Random Glucose 106 (60-115) mg/dL Calcium 8.5 D (8.4-10.2) mg/dL Total Bilirubin 0.2 (0.0-1.0) mg/dL Direct Bilirubin < 0.2 (0.0-0.5) mg/dL AST 22 (5-31) U/L ALT 20 (0-31) U/L Alkaline Phosphatase 83 (39-117) U/L Total Protein 7.8 (6.5-8.0) g/dL Albumin 4.3 (3.5-5.0) g/dL Lipase 22 (8-78) U/L Urine Color Yellow Urine Appearance Clear Urine pH 5.5 (5.0-9.0) Ur Specific [place] <= 1.005 (1.005-1.025) Urine Protein Negative (Neg-Trace) mg/dL Urine Glucose (UA) Negative (Negative) mg/dL Urine Ketones Negative (Negative) mg/dL Urine Blood Trace H (Negative) Urine Nitrite Negative (Negative) Ur Leukocyte Esterase Trace H (Negative) Urine RBC 0-2 (0-2) /HPF Urine WBC 0-5 (0-5) /HPF Ur Squamous Epith Cells 0-2 (0-2) /HPF Urine Bacteria None Seen (None Seen) Hyaline Casts 0-2 (0-2) /LPF Urine Test NEGATIVE (NEGATIVE) Influenza Type A (PCR) NEGATIVE (Negative) Influenza Type B (PCR) NEGATIVE (Negative) RSV RNA Qual (PCR) NEGATIVE (Negative) SARS-CoV-2 RNA (RT-PCR) NEGATIVE (Negative) 10/30/23 Range/Units 11:20 WBC (4.8-10.8) X10*3/uL RBC (4.20-5.50) X10*6/uL Hgb (12.0-16.0) g/dl Hct (37.0-47.0) % MCV (80.0-98.0) fL MCH (27.0-33.0) pg MCHC (31.0-35.0) g/dl RDW (11.0-16.0) % Plt Count (160-400) X10*3/uL MPV (9.4-12.3) fL Immature Gran % (Auto) (0.0-0.4) % Neut % (Auto) (45-73) % Lymph % (Auto) (20-40) % Grainger % (Auto) (2-11) % Eos % (Auto) (0-4) % Baso % (Auto) (0-2) % Lymph # (Auto) (1.2-4.9) X10*3/uL Grainger # (Auto) (0.1-1.2) X10*3/uL Eos # (Auto) (0.0-0.4) X10*3/uL Baso # (Auto) (0.0-0.2) X10*3/uL Abs Immat Gran (auto) (0.00-0.03) X10*3/uL Absolute Neuts (auto) (2.0-8.3) x10*3/uL Absolute Nucleated RBC (0.0-0.012) X10*3/uL Nucleated RBC % (auto) (0.0-0.2) /100WBC Sodium (135-145) mmol/L Potassium 4.9 (3.3-5.1) mmol/L Chloride (96-108) mmol/L Carbon Dioxide (22-29) mmol/L Anion Gap (12-20) BUN (9-16) mg/dL Creatinine (0.5-1.4) mg/dL Estim Creat Clear Calc Estimated GFR Random Glucose (60-115) mg/dL Calcium (8.4-10.2) mg/dL Total Bilirubin (0.0-1.0) mg/dL Direct Bilirubin (0.0-0.5) mg/dL AST (5-31) U/L ALT (0-31) U/L Alkaline Phosphatase (39-117) U/L Total Protein (6.5-8.0) g/dL Albumin (3.5-5.0) g/dL Lipase (8-78) U/L Urine Color Urine Appearance Urine pH (5.0-9.0) Ur Specific [place] (1.005-1.025) Urine Protein (Neg-Trace) mg/dL Urine Glucose (UA) (Negative) mg/dL Urine Ketones (Negative) mg/dL Urine Blood (Negative) Urine Nitrite (Negative) Ur Leukocyte Esterase (Negative) Urine RBC (0-2) /HPF Urine WBC (0-5) /HPF Ur Squamous Epith Cells (0-2) /HPF Urine Bacteria (None Seen) Hyaline Casts (0-2) /LPF Urine Test (NEGATIVE) Influenza Type A (PCR) (Negative) Influenza Type B (PCR) (Negative) RSV RNA Qual (PCR) (Negative) SARS-CoV-2 RNA (RT-PCR) (Negative) Discharge Plan Discharge Clinical Impression: Allergic reaction Patient Disposition: Home, Self-Care Instructions: General Allergic Reaction (ED) Additional Instructions: Refrain from cats exposure Prescriptions: No Action losartan 50 mg tablet 50 mg PO DAILY vitamin B complex [B Complex-Vitamin B12] Tablet 1 tab PO DAILY loratadine [Allergy Relief (loratadine)] 5 mg/5 mL solution 5 ml PO BID citalopram 30 mg capsule 30 mg PO DAILY Referrals: Izzy Apodaca MD [Primary Care Provider] - Print Language: Hong Konger
[2023-10-30 08:05] LABS: MANUAL DIFF FLAG NO
[2023-10-30] MEDS: methylPREDNISolone Sod Succ 125 MG/2 ML VIAL IVPUSH (08:07)
[2023-10-30] MEDS: diphenhydrAMINE HCL 50 MG/ML VIAL 25 MG IVPUSH (08:09)
[2023-10-30] MEDS: Famotidine/PF 20 MG/2 ML VIAL IVPUSH (08:09)
[2023-10-30] MEDS: 0.9 % Sodium Chloride 1,000 ML 999 ML IV (08:10)
[2023-10-30 08:13] LABS: Basophils Absolute Auto 0.1 X10*3/uL (0.0-0.2); Basophils Percent Auto 0.9 % (0-2); Eosinophils Absolute Auto 0.2 X10*3/uL (0.0-0.4); Hematocrit 41.9 % (37.0-47.0); Hemoglobin 14.6 g/dl (12.0-16.0); Imm Gran Abs Auto 0.01 X10*3/uL (0.00-0.03); Imm Gran Pct Auto 0.1 % (0.0-0.4); Lymphocytes Absolute Auto 2.7 X10*3/uL (1.2-4.9); Lymphocytes Percent Auto 34.9 % (20-40); Mean Corpuscular HGB Conc 34.8 g/dl (31.0-35.0); Mean Corpuscular Hemoglobin 31.4 pg (27.0-33.0); Mean Corpuscular Volume 90.1 fL (80.0-98.0); Monocytes Absolute Auto 0.5 X10*3/uL (0.1-1.2); Monocytes Percent Auto 6.4 % (2-11); Neutrophils Absolute Auto 4.2 x10*3/uL (2.0-8.3); Neutrophils Percent Auto 54.7 % (45-73); Platelet Count 423 X10*3/uL (160-400); Red Blood Count 4.65 X10*6/uL (4.20-5.50); Red Cell Distribution Width 12.4 % (11.0-16.0); White Blood Count 7.6 X10*3/uL (4.8-10.8)
[2023-10-30 08:17] LABS: Appearance Urine Clear; Color Urine Yellow; Glucose Urine UA Negative (Negative); Leukocyte Esterase Urine Trace (Negative); Nitrite Urine Negative (Negative); PH 5.5 (5.0-9.0); Specific Gravity - Urine <= 1.005 (1.005-1.025); UMIC TRIGGER UACC YES; Urine Blood Trace (Negative); Urine Ketones Negative (Negative); Urine Protein Negative (Neg-Trace)
[2023-10-30 08:22] LABS: UPreg QC Valid YES; Urine Pregnancy NEGATIVE (NEGATIVE)
[2023-10-30 08:28] LABS: Bacteria Urine None Seen (None Seen); Hyaline Casts Urine 0-2 /LPF (0-2); RBC Urine 0-2 /HPF (0-2); Squamous Epithelial Cell Urine 0-2 /HPF (0-2); WBC Urine 0-5 /HPF (0-5)
[2023-10-30 08:50] LABS: Influenza A PCR NEGATIVE (Negative); Influenza B PCR NEGATIVE (Negative); Resp Syncy Virus RNA Qual PCR NEGATIVE (Negative); SARS COV2 PCR INHOUSE NEGATIVE (Negative)
[2023-10-30 09:45] VITALS: BP 116/75; PULSE 82; RESP 21; TEMP 36.6; O2SAT 99
[2023-10-30 10:23] LABS: Alanine Aminotransferase 20 U/L (0-31); Albumin Level 4.3 g/dL (3.5-5.0); Alkaline Phosphatase 83 U/L (39-117); Anion Gap 16 (12-20); Aspartate Amino Transferase 22 U/L (5-31); Bilirubin Direct < 0.2 mg/dL (0.0-0.5); Bilirubin Total 0.2 mg/dL (0.0-1.0); Blood Urea Nitrogen 7 mg/dL (9-16); Calcium 8.5 mg/dL (8.4-10.2); Carbon Dioxide 21 mmol/L (22-29); Chloride 113 mmol/L (96-108); Estimated Glomerular Filt Rate > 60; Glucose Random 106 mg/dL (60-115); Lipase 22 U/L (8-78); Potassium 5.4 mmol/L (3.3-5.1); Sodium 145 mmol/L (135-145); Total Protein 7.8 g/dL (6.5-8.0)
[2023-10-30 11:34] LABS: Potassium 4.9 mmol/L (3.3-5.1)
[2023-10-30 11:59] VITALS: BP 121/77; PULSE 84; RESP 16; TEMP 36.3; O2SAT 98
--- NOTE | 2023-10-30 12:02 | PC.NURSE ---
pt a&ox4, vss, 20G PIV placed left AC, pt medicated per JUL. pt initially reporting feeling weird after medication administration, provider aware. pt reported improvement in symptoms after ~30 mins.
[2023-10-30 12:03] VITALS: BP 121/77; PULSE 84; RESP 16; TEMP 36.3; O2SAT 98
== END 2023-10-30 12:04 | disposition home or self-care (01) ==
PROVIDERS: Emergency Provider Emergency Medicine; PCP Student in an Organized Health Care Education/Training Program
DX: T78.49XA Other allergy, initial encounter (principal); J30.81 Allergic rhinitis due to animal (cat) (dog) hair and dander; X58.XXXA Exposure to other specified factors, initial encounter; I10 Essential (primary) hypertension; F17.210 Nicotine dependence, cigarettes, uncomplicated; Z03.818 Encounter for observation for suspected exposure to other biological agents ruled out
CPT/HCPCS: 0241U; 36415; 80048; 80076; 81001; 81025; 83690; 84132; 85025; 96361; 96374; 96375; 99283; 99284; J1200; J2919

== ENCOUNTER 2024-05-08 13:21 | Outpatient (REF) | payer MEDICAID, SELFPAY ==
--- NOTE | ~2024-05-08 | XR_ITS ---
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 FINDINGS: PA and lateral views of the chest are submitted. The lungs are expanded and clear. There is no pleural effusion, pneumothorax, or pulmonary vascular congestion. The heart is normal in size. The bones are intact. XR/XR chest 2V IMPRESSION: No acute cardiopulmonary abnormality. Electronically signed by: Dm Cui MD 05/08/2024 01:47 PM [facility]
[2024-05-10 21:47] LABS: TS Negative Control Passed; TS Panel A 2; TS Panel B 1; TS Positive Control Passed; TSpotTB Negative (Negative)
== END 2024-05-08 13:22 | disposition home or self-care (01) ==
LOC: HO.HHCX 13:21
PROVIDERS: Visit Provider Nurse Practitioner Primary Care
DX: Z11.1 Encounter for screening for respiratory tuberculosis (principal); R76.11 Nonspecific reaction to tuberculin skin test without active tuberculosis
CPT/HCPCS: 36415; 71046; 86481

== ENCOUNTER → 2024-05-08 13:21 | Outpatient (BNV) | payer MEDICAID, SELFPAY | PROVIDERS: Visit Provider Radiology Diagnostic Radiology | DX: Z11.1 Encounter for screening for respiratory tuberculosis (principal) | CPT/HCPCS: 71046 ==

== ENCOUNTER 2024-05-15 13:21 | Outpatient (REF) | payer MEDICAID, SELFPAY | END 2024-05-15 13:22 | disposition home or self-care (01) | LOC: HO.MAMMO 13:21 | PROVIDERS: PCP Student in an Organized Health Care Education/Training Program; Visit Provider Student in an Organized Health Care Education/Training Program | DX: Z12.31 Encounter for screening mammogram for malignant neoplasm of breast (principal) | CPT/HCPCS: 77063; 77067 ==

== ENCOUNTER → 2024-05-15 13:30 | Outpatient (BNV) | payer MEDICAID, SELFPAY | PROVIDERS: PCP Student in an Organized Health Care Education/Training Program; Visit Provider Internal Medicine | DX: Z12.31 Encounter for screening mammogram for malignant neoplasm of breast (principal) | CPT/HCPCS: 77063; 77067 ==

== ENCOUNTER 2024-05-29 09:46 | Outpatient (REF) | payer MEDICAID, SELFPAY ==
[2024-05-29 11:31] LABS: MANUAL DIFF FLAG NO
[2024-05-29 11:36] LABS: Basophils Absolute Auto 0.1 X10*3/uL (0.0-0.2); Basophils Percent Auto 1.8 % (0-2); Eosinophils Absolute Auto 0.3 X10*3/uL (0.0-0.4); Eosinophils Percent Auto 5.1 % (0-4); Hematocrit 41.5 % (37.0-47.0); Hemoglobin 13.7 g/dl (12.0-16.0); Imm Gran Abs Auto 0.01 X10*3/uL (0.00-0.03); Imm Gran Pct Auto 0.2 % (0.0-0.4); Lymphocytes Absolute Auto 2.9 X10*3/uL (1.2-4.9); Lymphocytes Percent Auto 45.9 % (20-40); Mean Corpuscular Hemoglobin 30.8 pg (27.0-33.0); Mean Corpuscular Volume 93.3 fL (80.0-98.0); Mean Platelet Volume 10.9 fL (9.4-12.3); Monocytes Absolute Auto 0.4 X10*3/uL (0.1-1.2); Monocytes Percent Auto 6.1 % (2-11); Neutrophils Absolute Auto 2.6 x10*3/uL (2.0-8.3); Neutrophils Percent Auto 40.9 % (45-73); Platelet Count 382 X10*3/uL (160-400); Red Blood Count 4.45 X10*6/uL (4.20-5.50); Red Cell Distribution Width 12.7 % (11.0-16.0); White Blood Count 6.3 X10*3/uL (4.8-10.8)
[2024-05-29 11:48] LABS: Estimated Average Glucose 100 mg/dL; Hemoglobin A1C 118.0648 umol/L; Hemoglobin A1c % 5.1 % (<6.0); Total Hemoglobin (HGBA1C) 3662.7022 umol/L
[2024-05-29 12:08] LABS: Alanine Aminotransferase 20 U/L (0-31); Albumin Level 4.2 g/dL (3.5-5.0); Alkaline Phosphatase 72 U/L (39-117); Anion Gap 9 (12-20); Aspartate Amino Transferase 22 U/L (5-31); Bilirubin Total 0.3 mg/dL (0.0-1.0); Blood Urea Nitrogen 11 mg/dL (9-16); Calcium 8.9 mg/dL (8.4-10.2); Carbon Dioxide 25 mmol/L (22-29); Chloride 111 mmol/L (96-108); Cholesterol 198 mg/dL (<200); Estimated Glomerular Filt Rate > 60; Glucose Random 85 mg/dL (60-115); HDL Cholesterol 59 mg/dL (>40); LDL Cholesterol Calculated 126 mg/dL (<100); Potassium 4.2 mmol/L (3.3-5.1); Sodium 141 mmol/L (135-145); Total Protein 7.6 g/dL (6.5-8.0); Triglycerides 69 mg/dL (<150)
[2024-05-29 12:16] LABS: TSH reflex Free T4 0.77 uIU/mL (0.32-4.0); Vitamin D 25-OH Total 75.2 ng/mL (>30)
[2024-05-29 12:36] LABS: Folate 9.8 ng/mL (> or = 4.0); Vitamin B12 1141 pg/mL (200-900)
[2024-05-29 13:02] LABS: Reflex LDLD? No
--- OUTSIDE RECORDS SUMMARY | 2024-05-29 14:15 | XMS_ITS | Encounter Summary ---
Author Organization [employer] Address [address] [facility] 7t [place] [address] Care Team Providers Care Packer Inspector Name Role Phone Izzy Apodaca MD Primary Care Pro vider Reason for Referral * Imaging (Routine) - Authorized Specialty Diagnoses / Procedures Referred By Contac t Referred To Contact Radiology Diagnoses Abdominal wall mass Procedures US Abdomen Limited Mary Argueta ANP [address] [place] [address] Phone: tel: fax: [address] Phone: tel: fax: Referral ID Status Reason Start Date Expiration Date V isits Requested Visits Authorized [id number] Authorized 05/09/2024 05/09/2025 1 1 Reason for Visit * Reason Onset Date Comments Referral 05/01/2024 Encounter Details Date Type Department Care Team (Late st Contact Info) Description 05/01/2024 Telephone [facility] [address] [place], [place] [phone] Izzy Apodaca MD [address] [place], [place] [phone] Referral Social History Tobacco Use Types Packs/Day Years Used Date Smoking Tobacco: Every Day Cigarettes 0.3 20 Passive Smoke Exposure: Current Smokeless Tobacco: Current Comments:Started smoking in 23 y of age ,until now --1 PQT a day ,smoking for 24 years--average smoking 17 cig a day . PQT a year calc 20.4 Alcohol Use Standard Drinks/Week Comments Yes 2 (1 standard drink = 0.6 oz pure alcohol) 1 glass of coctakil a day sometimes 2 Depression Answer Date Recorded Patient Health Questionnaire-9 Score 17 04/29/2023 Patient Health Questionnaire-9 Score 17 04/29/2023 Last PHQ-9: Questionnaire Data Not on file 1 06/30/2022 Housing Stability Answer Date Recorded What is your housing situation today? I have leonel elias 04/29/[address] you li ve. Do you have problems with any of the following? None of the above 04/29/2023 Food Insecurity Answer Date Recorded Within the past 12 months, y ou worried that your food would run out before you got money to buy more: Never True 04/29/2023 Within the past 12 months,th e food you bought just didn't last and you didn't have enough money to get more: Never True Transportation Answer Date Recorded In the past 12 months, has l ack of transportation kept you from medical appts, meetings, work or from getting things needed for daily living? No 04/29/2023 Utilities Answer Date Recorded In the past 12 months, has t he electric, gas, oil or water company threatened to shut off services in your home? No 04/29/2023 Depression Answer Date Recorded Patient Health Questionnaire-2 Score 6 04/29/2023 Comments No Sex and Gender Information Value Date Recorded Sex Assigned at Female 03/02/2022 10:22 AM EDT Legal Sex Female 10:22 AM EDT Gender Identity Female 03/02/2022 10:22 AM EDT Sexual Orientation Straight 03/02/2022 10 :22 AM EDT documented as of this encounter Miscellaneous Notes * Addendum Note - DANIELLA Nelson - 05/09/2024 1:04 PM ESTAddended by: MARY ARGUETA on: 05/09/2024 01:04 PM Modules accepted: Orders * Telephone Encounter - Geno Lopez RN - 05/05/2024 3:07 PM EST Called [facility] and requested them to call pt again for lung cancer screening program, pt was no show last year. Was told that no new referral is needed even though last referral was 05/04/23. Called pt to advise that ultrasound order was resent, offered contact info for [facility], pt declined. Advised pt to look out for call from [facility] in regards to rescheduling this. Pt then asked about scheduling MIC[facility]LE physical appt, called [facility]t is 05/29, booked pt for this but also advised her to call back daily for cancellations. Pt in agreement, to call clinic PRN. * Telephone Encounter - DANIELLA Nelson - 05/04/2024 4:38 PM EST Have re-ordered US and asked team to re-fax LDCT form from last May. 05/09/24 Addendum got message from A dx specialist that should be US ltd per radiology. Have updated order. * Telephone Encounter - Saadia Bettencourt RN - 05/04/2024 4:10 PM EST TC placed to pt to clarify on specifically is needed for renewing referrals. The pt is aware that PCP Dr. Ruggiero is on maternity leave and advised that a covering provider will review OV notes from 08/23/[address] Ruggiero specifies what referrals are needed per pt health condition. Pt confirms that she needs a referral for abdominal wall US w valsalva for abdominal wall mass sensation. For facial skin tags the pt was referred already to Dr. Mijares and advised to f/u with that office. For left parotid gland nodule the pt was advised to call her ENT for a f/u but has not. Lastly the pt was inquiring about the lung cancer screening referral as she has not heard anything as of today. * Telephone Encounter - DANIELLA Nelson - 05/04/2024 12:52 PM EST Please clarify with pt, requests all referrals to be renewed. sleep med referral does not til August 2024. Other referrals in chart are allergy, referral for LDCT (which after enrolling in LDCT program would not think they would need renewal), and derm for skin tag removal which may not be ongoing. Thanks. * Telephone Encounter - Roya Norton - 05/02/2024 1:08 PM EST Please see message below. Thank you * Telephone Encounter - Nilda Murillo - 05/01/2024 2:18 PM EST Tc from pt requesting to renew all referrals that are placed in her chart as they're . documented in this encounter Plan of Treatment Upcoming Encounters Date Type Department Care Team (Late st Contact Info) Description 06/27/2024 1:00 PM EST Office Visit [facility] [address] [place] [phone] Lolis Kiran CNM [address] [place] [phone] 08/07/2024 1:00 PM EDT Office Visit [facility] [address] [place] [phone] Izzy Apodaca MD [address] [place] [phone] Scheduled Orders Name Type Priority Associated Diagnoses Orde r Schedule US Abdomen Limited Imaging Routine Abdominal wall mass Expected: 05/09/2024, Expires: 05/09/2025 documented as of this encounter Visit Diagnoses Diagnosis Abdominal wall mass- Primary Abdominal or pelvic swelling, mass or lump, unspecified site documented in this encounter Additional Health Concerns Assessment Noted Time PHQ-9 Depression Total Score: 17 023 3:17 PM EST documented as of this encounter Care Teams Packer Inspector Relationship Specialty Start Date End Date Izzy Apodaca MD [address] [place] [phone] PCP - General Internal Medicine 04/29/23 documented as of this encounter
--- OUTSIDE RECORDS SUMMARY | 2024-05-29 14:15 | XMS_ITS | Encounter Summary ---
Author Organization [email or web address] Address [address] [facility] [place] [address] Care Team Providers Care Intervention Teacher Name Role Phone Izzy Apodaca MD Primary Care Pro vider Encounter Details Date Type Department Care Team (Latest Contact Info) Description 05/01/2024 Travel Social History Tobacco Use Types Packs/Day Years [...] AM EDT documented as of this encounter Plan of Treatment Upcoming Encounters Date Type Department Care Team (Late st Contact Info) Description 06/27/2024 1:00 PM EST Office Visit [facility] [address] [place] [address] Lolis Kiran CNM [address] [place] [phone] 08/07/2024 1:00 PM EDT Office Visit [address] [phone] Izzy Apodaca MD [address] [place] [phone] documented as of this encounter Visit Diagnoses Not on filedocumented in this encounter Additional Health Concerns Assessment Noted Time PHQ-9 Depression Total Score: 17 023 3:17 PM EST documented as of this encounter Care Teams Intervention Teacher Relationship Specialty Start Date End Date Izzy Apodaca MD [address] [place] [address] [phone] PCP - General Internal Medicine 04/29/23 documented as of this encounter
--- OUTSIDE RECORDS SUMMARY | 2024-05-29 14:15 | XMS_ITS | Encounter Summary ---
Author Organization [employer] Address [address] [facility] [address] 7[address] [place] [address] Care Team Providers Care Preschool Teacher Assistant Name Role Phone Izzy Apodaca MD Primary Care Pro vider Encounter Details Date Type Department Care Team ([facility] st Contact Info) Description 05/15/2024 Orders Only [facility] [address] [place] [address] Izzy Apodaca MD [address] [place] [address] Social History Tobacco Use Types Packs/Day Years [...] housing situation today? I have leonel elias 05/18/[address] you li ve. Do you have problems with any of the following? None of the above 05/18/2024 Food Insecurity Answer Date Recorded Within the past 12 months, y ou worried that your food would run out before you got money to buy more: Often true 05/18/2024 Within the past 12 months,th e food you bought just didn't last and you didn't have enough money to get more: Often true Transportation Answer Date Recorded In the past 12 months, has l ack of transportation kept you from medical appts, meetings, work or from getting things needed for daily living? No 05/18/2024 Utilities Answer Date Recorded In the past 12 months, has t he electric, gas, oil or water company threatened to shut off services in your home? No 05/18/2024 Depression Answer Date Recorded Patient Health Questionnaire-2 Score 6 04/29/2023 Internet Access Answer Date Recorded Internet Access Q1 Yes 05/18/2024 Internet Access Q2 Not on file 05/18/2024 Comments No Sex and Gender Information Value [...] Description 06/27/2024 1:00 PM EST Office Visit [facility] [address] [place] [phone] Lolis Kiran CNM [address] [place] [phone] 08/07/2024 1:00 PM EDT Office Visit [facility] [address] [place] [phone] Izzy Apodaca MD [address] [place] [address] [phone] documented as of this encounter Procedures Procedure Name Priority Date/Time Associated Diagnosis Comments BI MAMMOGRAM SCREENING TOMOSYNTHESIS BILATERAL Routine 05/15/2024 1:30 PM EST documented in this encounter Results * BI Mammogram Screening Tomosynthesis Bilateral (05/15/2024 1:30 PM EST) Anatomical Region Laterality Modality Breast Bilateral Mammography 05/15/2024 1:30 PM EST Narrative 05/23/2024 4:25 PM EST ? [facility] ? [address] ?[place], [place] [address] ? Mammography Report ? Signed ? Patient: Lewis,Tali B ?MR#: [id number] ?? [id number] ? : 1975 ?Acct:[id number] ? Age/Sex: 48 / F ?ADM Date: 05/15/24 ? Loc: HO.MAMMO ? Attending Dr: Izzy Turpin MD ? Ordering Physician: Izzy Apodaca MD ?Re ?? sults: 1Negative ? Date of Service: 05/15/24 ?Follow Up: 1 Year From Orig ?? inal Mammogram ? Procedure(s): MM tomosynthesis screening BI ?? Accession Number(s): [id number] ? cc: Izzy Apodaca MD ? EXAMINATION: ?? MM SCREENING DIGITAL BREAST TOMOSYNTHESIS, BILATERAL ? CLINICAL INFORMATION: ? Screening. Asymptomatic. ? COMPARISON: ?? Mammography: Comparison is made with available priors ? TECHNIQUE: ?? Digital breast mammography with tomosynthesis is performed in both the ?? craniocaudal and mediolateral oblique views along with computer-aided ?? detection (CAD). ? FINDINGS: ?? There are scattered areas of fibroglandular density (ACR BI-RADS breast ?? composition Category b). ? There are no significant masses, abnormal calcifications, or other ?? abnormalities. ? MM/MM tomosynthesis screening BI ?? IMPRESSION: ?? No mammographic evidence of malignancy. ? ASSESSMENT: ? BI-RADS BI-RADS 1 - Negative ? RECOMMENDATION: ?? Routine annual mammography screening. ? 1 year F/U ? This examination should not preclude the clinical evaluation of a ?? suspicious palpable abnormality. ? This patient's information was entered into a reminder system with a ?? target due date for their next mammogram. ? Electronically signed by: ??Tierra Faria DO ??05/23/2024 04:22 PM EST ? Dictated By: ?Tierra Faria DO ? Signed By: ?<Electronically signed by Tierra Faria, DO in OV> ? 05/23/24 1622 ? DD/ 1330 ? TD/TT: 05/15/24 1345 ? Winterizer: ? Procedure Note Donmarvindonalter, Image - 05/23/2024 [facility] [address] [place] [address] Mammography Report Signed Patient: Tali Lewis BMR#: [id number] : 1975Acct:[id number] Age/Sex: 48 / FADM Date: 05/15/24 Loc: HO.MAMMO Attending Dr: Izzy Turpin MD Ordering Physician: Izzy Apodaca sults: 1Negative Date of Service: 05/15/24Follow Up: 1 Year From Orig inal Mammogram Procedure(s): MM tomosynthesis screening BI Accession Number(s): [id number] cc: Izzy Apodaca MD EXAMINATION: MM SCREENING DIGITAL BREAST TOMOSYNTHESIS, BILATERAL CLINICAL INFORMATION: Screening. Asymptomatic. COMPARISON: Mammography: Comparison is made with available priors TECHNIQUE: Digital breast mammography with tomosynthesis is performed in both the craniocaudal and mediolateral oblique views along with computer-aided detection (CAD). FINDINGS: There are scattered areas of fibroglandular density (ACR BI-RADS breast composition Category b). There are no significant masses, abnormal calcifications, or other abnormalities. MM/MM tomosynthesis screening BI IMPRESSION: No mammographic evidence of malignancy. ASSESSMENT: BI-RADS BI-RADS 1 - Negative RECOMMENDATION: Routine annual mammography screening. 1 year F/U This examination should not preclude the clinical evaluation of a suspicious palpable abnormality. This patient's information was entered into a reminder system with a target due date for their next mammogram. Electronically signed by: Tierra Faria DO 05/23/2024 04:22 PM EST RP Dictated By: Tierra Faria DO Signed By: <Electronically signed by Tierra Faria DO in OV> 05/23/24 1622 DD/ 1330 TD/TT: 05/15/24 1345 Winterizer: Izzy Turpin MD IMG BI PROCEDURES Final Result documented in this encounter Visit Diagnoses Not on filedocumented in this encounter Additional Health Concerns Assessment Noted Time PHQ-9 Depression Total Score: 17 023 3:17 PM EST documented as of this encounter Care Teams Preschool Teacher Assistant Relationship Specialty Start Date End Date Izzy Apodaca MD [address] [place] [phone] PCP - General Internal Medicine 04/29/23 documented as of this encounter
--- OUTSIDE RECORDS SUMMARY | 2024-05-29 14:15 | XMS_ITS | Encounter Summary ---
Author Organization [employer] Address [address] [facility] 7t [place] [address] Care Team Providers Care Senior Process Control Tech Name Role Phone Izzy Apodaca MD Primary Care Pro vider Reason for Visit * Reason Comments Pre-visit Planning SDOH screening posit krissy and Tobacco screening negative Encounter Details Date Type Department Care Team ([facility] st Contact Info) Description 05/18/2024 Patient Outreach [facility] [address] [place] [address] Izzy Apodaca MD [address] [place], [place] [phone] Pre-visit Planning (SDOH screening positive and Tobacco screening negative) Social History Tobacco Use Types Packs/Day Years [...] AM EDT documented as of this encounter Progress Notes * Kamilla Rendon - 05/18/2024 9:38 AM EST ROS Farfan placed successful outbound call to patient for pre-visit planning. Patient name and confirmed. Patient confirms appt date and time, and has transportation arrangements. Biggest concern for appointment at this time is -----. Patient advised to bring to appointment a photo id and insurance card. Appropriate screenings completed in anticipation of appointment. Tobacco screening positive. Will need counseling. SDOH positive. Patient looking for assistance with Food insecurities. Referral will be placed. documented in this encounter Plan of Treatment Upcoming Encounters Date Type Department Care Team (Late st Contact Info) Description 06/27/2024 1:00 PM EST Office Visit [facility] [address] [place] [phone] Lolis Kiran CNM [address] [place] [address] 08/07/2024 1:00 PM EDT Office Visit [facility] [address] [place], [place] [phone] Izzy Apodaca MD [address] [place], [place] [phone] documented as of this encounter Visit Diagnoses Not on filedocumented in this encounter Additional Health Concerns Assessment Noted Time PHQ-9 Depression Total Score: 17 023 3:17 PM EST documented as of this encounter Care Teams Senior Process Control Tech Relationship Specialty Start Date End Date Izzy Apodaca MD [address] [place] [address] [phone] PCP - General Internal Medicine 04/29/23 documented as of this encounter
--- OUTSIDE RECORDS SUMMARY | 2024-05-29 14:15 | XMS_ITS | Encounter Summary ---
Author Organization [employer] Address [address] [facility] [address] [place] [address] Care Team Providers Care Large Sheetfed Press Operator Name Role Phone Izzy Apodaca MD Primary Care Pro vider Reason for Referral * Imaging (Routine) - Canceled Specialty Diagnoses / Procedures Referred By Efra bryant Referred To Contact Radiology Diagnoses Abdominal wall mass Procedures US Abdomen Complete Mary Argueta ANP [address] [place] [address] Phone: tel: fax: [address] Phone: tel: fax: Referral ID Status Reason Start Date Expiration Date V isits Requested Visits Authorized [id number] Canceled 05/04/2024 05/04/2025 1 1 * Consultation (Routine) - Closed Specialty Diagnoses / Procedures Referred By Contac t Referred To Contact Diagnoses Loud snoring Izzy Apodaca MD [address] [place] [address] Phone: tel: fax: [facility] [address], [address] [place] [address] Phone: tel: fax: Referral ID Status Reason Start Date Expiration Date V isits Requested Visits Authorized [id number] Closed Specialty Services Required 08/24/2023 08/23/2024 6 6 Reason for Visit * Reason Comments Follow-up BP,Labs, Images Encounter Details Date Type Department Care Team (Latest Contact Info) Description 08/23/2023 1:00 PM EDT Office Visit [facility] MEDICINE [address] [place] [id number] Izzy Apodaca MD [address] [place], [place] [phone] Loud snoring (Primary Dx); Essential hypertension; Obesity (BMI 30-39.9); Tobacco dependence syndrome; Neoplasm of parotid gland; Hx of antibiotic allergy; Health care maintenance; Depression with anxiety; Abdominal wall mass; History of trichomoniasis Social History Tobacco Use Types Packs/Day Years Used Date Smoking Tobacco: Every Day Cigarettes 0.3 20 Smokeless Tobacco: Current Tobacco Cessation:Ready to Q uit: Not Asked; Counseling Given: Not Answered Comments:Started smoking in 23 y of age [...] AM EDT documented as of this encounter Last Filed Vital Signs Vital Sign Reading Time Taken Comments Blood Pressure 132/88 08/23/2023 1:03 PM EDT Pulse 100 08/23/2023 1:03 PM EDT Temperature 36.8 ??C (98.2 ??F) 08/23/2023 1:03 PM ED T Respiratory Rate 20 08/23/2023 1:03 PM EDT Oxygen Saturation 97% 08/23/2023 1:03 PM EDT Inhaled Oxygen Concentration - - Weight 84.1 kg (185 lb 6.4 oz) 08/23/2023 1:03 P M EDT Height 167.6 cm (5' 6 ) 08/23/2023 1:03 PM EDT Body Mass Index 29.92 08/23/2023 1:03 PM EDT documented in this encounter Progress Notes * Izzy Turpin MD - 08/23/2023 1:00 PM EDT Subjective Patient ID: Tali Lewis is a 48 y.o. female who presents for f up apt HPI 48 y o F with PMX of obesity, HTN,recurrent genital herpes ,active tobacco smoker, anxiety -depression,migraine VASQUEZ Comes to f lab results Reports loud snoring and apnea episodes Recently dxed trich + in recent pap smear s/p Tx --has f up w Lolis Han in 10/2023 ------- Assessment and Plan: Health care maintenance -Annual exam done 04/2023 -T-spot and 2020 are negative ( reported hx of previous + Quantiferon?) -menopause : s/p total hysterectomy ??? at 33 y of age for dysmenorrhea-not able to get records requested -pap smear: S/p hysterectomy --> 05/2023 Neg /HPV neg -Screening MM 05/2023 BI-RADS BI-RADS 0 ----> Right dx MM and US report 05/13/2023: There are no findings in either breast consistent with malignancy. BI-RADS 2 -colonoscopy: last 1 y at [facility] -neg per pt -- ---- requested record to ARMANDO Hand O---GI note seen 07/2021 For prescreening eval for colonoscopy -but not able to get records of actual procedure--Req again today -vaccines:COVID 19 x3 -reports had last booster and flu vaccine 03/2023 At pharmacy ,TD 2014 ,offered p20 for tobacco use but refuse,-hep B core ab pos, surf ab immune ,ag neg .Will offer Shingrix atnext apt ------ 05/2023 LDL 118 ,total 194, HDL 63 -ASCVD 4.7% -no ind for statins yet -repeat in 1 y Obesity Lost 6 pounds in last 5 months -no change in life,eat less for work -BMI 29.9<----30 -Advised pt to improve diet and exercise,discussed healthy life style -discussed space operations officer referral -refuse for now -1 glass of coctakil a day sometimes 2 --advised to try to decrease to 1 max a day -loud snowing and apnea --sleep med referred today HTN BP controlled 05/2023 microalbumin neg -baseline EKG today 08/23/2023 NSR,HR 77x', QTC 428 , no ischemic findings -has machine at home -advised to bring BP readings at next apt -continue losartan 50 mg daily and amlodipine 5 mg daily Active tobacco smoker -Started smoking in 23 y of age ,until now --1 PQT a day ,smoking for 24 years--average smoking 17 cig a day . PQT a year calc 20.4 Tried chantix in the past for 2 mo w no effect for which stopped med -referred for lung ca screening program -will turn 48 next month --pd to start program -will f at next apt -advised for tobacco cesation program --refuse for now -continue bupropion 150 mg BID , keep using nicotine patch of 21 has 3 refills , if next improves to decrease dose at next apt keep for now not sure when to stop -monitor Anxiety /depression Hx of depression,anxiety ,hx of panic attacks PHQ9 17, KINSEY 19 , no SI , no renetta nor hallucinations Feels this way for years , no triggers -on citalopram 40 mg daily -saw BH at last apt( Yraely Dyer) -declined any services as psychotx and psychiatrist -continue to monitor Migraine VASQUEZ -MRI brain w/wo contrast 12/2020 Normal appearance to the brain parenchyma and ventricular system with no evidence for focal lesion or abnormal enhancement, mass effect, hydrocephalus or hemorrhage. Somewhat diminished signal void in the right cavernous carotid artery which may be artifactual butMRA is suggested to further assess this. -controlled -continue PO mag daily -pt takes ibuprofen and fiorcet prn for migraine -states rarely -if pain persist may need to consider MRA as suggested above Recurrent genital herpes -hx of several recurrence started on daily ppx by her MEDICAL IMAGING TECHNICIAN Hx of antibiotic allergy Hx of Augmentin allergy when adult > 10 y ago -referred to gyro mechanic to clarify if true allergy -has coming apt Hyperparathyroidism hx s/p parathyroidectomy -one gland per pt -chem 05/2023 : ca+ wnl -requested to [place] records of previous endo -not following any more per pt -per pt was told to monitor w PCP--not able to get records Facial skin tags -cell support operator -referred already---pt with skin tags in face that would like have remove --gave info of derm to call Abdominal wall mass sensation pt w superficial discomfort in her abdominal wall above umbilical area -possible hernia -reported as chronic and unchanged -referred for abd wall US w valsalva -pd --gave info today to call for apt Left parotid gland nodule -MRI soft tissue neck w /wo contrast 01/2021: Subcentimeter enhancing nodule in the deep lobe of the left parotid gland consistent with a small parotid neoplasm. Suggest ENT consultation for further workup. Mildly enlarged level IIb lymph node on the left and a mildly enlarged upper right paratracheal lymph node posterior to the right thyroid lobe of indeterminate significance. Recommend follow-up CT of the neck with contrast to reassess in 6 months. -Saw ENT in 2020 and was advise to f back to repeat image in 1 y ---pt states will call her ENT forf up -- if not will need to refer for image to monitor finding Chronic pain -Lumbar and bl hip XR 10/2021: Mild degenerative changes of the lumbar spine at the L4/L5 level. No significant degenerative changes, fracture or dislocation of either hip Review of Systems Constitutional: Negative. Respiratory: Positive for apnea. Loud snoring Objective BP 132/88 (BP Location: Left arm, Patient Position: Sitting, BP Cuff Size: Adult) Pulse 100 Temp 98.2 ??F (36.8 ??C) (Oral) Resp 20 Ht 5' 6 (1.676 m) Wt 185 lb 6.4 oz (84.1 kg) LMP (LMP Unknown) Comment: Hysterectomy @ age 33 SpO2 97% BMI 29.92 kg/m?? Physical Exam Constitutional: General: She is not in acute distress. Appearance: Normal appearance. Neurological: Mental Status: She is alert. Assessment/Plan Problem List Items Addressed This Visit Circulatory Essential hypertension Endocrine/Metabolic Obesity (BMI 30-39.9) Other Neoplasm of parotid gland Tobacco dependence syndrome Health care maintenance Depression with anxiety Hx of antibiotic allergy Abdominal wall mass History of trichomoniasis Other Visit Diagnoses Loud snoring - Primary Relevant Orders Referral to Sleep Medicine documented in this encounter Miscellaneous Notes * Addendum Note - DANIELLA Nelson - 08/23/2023 1:00 PM EDTAddended by: MARY ARGUETA on: 05/04/2024 04:35 PM Modules accepted: Orders documented in this encounter Plan of Treatment Upcoming Encounters Date Type Department Care Team (Late st Contact Info) Description 06/27/2024 1:00 PM EST Office Visit [facility] MEDICINE [address] [place] [address] Lolis Kiran CNM [address] [place] [address] 08/07/2024 1:00 PM EDT Office Visit [facility] MEDICINE [address] [place] [address] Izzy Apodaca MD [address] [place] [address] Scheduled Orders Name Type Priority Associated Diagnoses Orde r Schedule US Abdomen Complete Imaging Routine Abdominal wall mass Expected: 05/04/2024, Expires: 05/04/2025 Scheduled Referrals Name Type Priority Associated Diagnoses Orde r Schedule Referral to Sleep Medicine Outpatient Referral Routine Loud snoring Expected: 08/23/2023 (Approximate), Expires: 08/22/2024 documented as of this encounter Visit Diagnoses Diagnosis Loud snoring- Primary Essential hypertension Unspecified essential hypertension Obesity (BMI 30-39.9) Tobacco dependence syndrome Tobacco use disorder Neoplasm of parotid gland Neoplasm of unspecified nature of digestive system Hx of antibiotic allergy Health care maintenance Depression with anxiety Dysthymic disorder Abdominal wall mass Abdominal or pelvic swelling, mass or lump, unspecified site History of trichomoniasis documented in this encounter Additional Health Concerns Assessment Noted Time PHQ-9 Depression Total Score: 17 023 3:17 PM EST documented as of this encounter Care Teams Large Sheetfed Press Operator Relationship Specialty Start Date End Date Izzy Apodaca MD [address] [place] [address] PCP - General Internal Medicine 04/29/23 documented as of this encounter
--- OUTSIDE RECORDS SUMMARY | 2024-05-29 14:15 | XMS_ITS | Encounter Summary ---
Author Organization [employer] Address [address] [facility] [address] [place] [address] Care Team Providers Care Director Of Operations Support Name Role Phone Abby Sky [employer] Primary Care Provider [phone] Abby Sky Primary Care Provider [phone]- [phone] Izzy Apodaca MD Primary Care Pro vider Encounter Details Date Type Department Care Team (Late st Contact Info) Description 10/16/2022 Abstract [facility] MEDICINE [address] [place] [address] Abby Sky FNP [address] [place] [address] Dept [place] [address] Social History Tobacco Use Types Packs/Day Years Used Date Smoking Tobacco: Every Day Cigarettes 1 20 Smokeless Tobacco: Current Alcohol Use Standard Drinks/Week Comments Yes 2 (1 standard drink = 0.6 oz pur e alcohol) Depression Answer Date Recorded Patient Health Questionnaire-9 Score 0 05/15/2022 Depression Answer Date Recorded Patient Health Questionnaire-2 Score 0 05/15/2022 Comments Unknown Sex and Gender Information Value Date Recorded Sex Assigned at Female 03/02/2022 10:22 AM EDT Legal Sex Female 10:22 AM EDT Gender Identity Female 03/02/2022 10:22 AM EDT Sexual Orientation Straight 03/02/2022 10 :22 AM EDT COVID-19 Exposure Response Date Recorded In the last 10 days, have yo u been in contact with someone who was confirmed or suspected to have Coronavirus/COVID-19? No / Unsure 09/22/2022 1:12 PM EDT documented as of this encounter Plan of Treatment Upcoming Encounters Date Type Department Care Team (Late st Contact Info) Description 06/27/2024 1:00 PM EST Office Visit [facility] [address] [facility], [place] [phone] Lolis Kiran CNM [address] [place], [place] [phone] 08/07/2024 1:00 PM EDT Office Visit [facility] MEDICINE [address] [place], [place] [phone] Izzy Apodaca MD [address] [place], [place] [phone] documented as of this encounter Visit Diagnoses Not on filedocumented in this encounter Additional Health Concerns Assessment Noted Time PHQ-9 Depression Total Score: 0 05/15/19 3:24 PM EST documented as of this encounter Care Teams Director Of Operations Support Relationship Specialty Start Date End Date Abby Sky FNP PCP - General Family Medicine 12/28/21 11/24/22 Abby Sky FNP PCP - General Family Medicine 03/18/23 04/18/23 Izzy Apodaca MD [address] [place] [phone] PCP - General Internal Medicine 04/29/23 documented as of this encounter
--- OUTSIDE RECORDS SUMMARY | 2024-05-29 14:15 | XMS_ITS | Clinical Summary ---
Author Organization [employer] Address [address] [place] [address] Care Team Providers Care Checking Clerk Name Role Phone Izzy Apodaca MD Primary Care Pro vider Allergies Active Allergy Reactions Criticality Noted Date Comments Amoxicillin-Pot Clavulanate 05/15/19 23 Other reaction(s): TONGUE SWELLS, AMOX OKAY when adult > 10 y ago Aspartame 05/20/2022 Oxycodone-Acetaminophen 05/15/2022 Other reaction(s): nausea and vomiting [place] Extract 05/20/2022 Medications * This document contains information received from the source organization and may not represent a complete record from that organization. SUMAtriptan (Imitrex) 25 MG tablet Take 1 tablet by mouth. 1 Active butalbital-aceta minophen-caffein e (Esgic) 50-325-40 MG capsule Take 1-2 capsules by mouth every 4 (four) hours. 2 Active ibuprofen 800 MG tablet Take 1 tablet by mouth every 8 (eight) hours. Active betamethasone dipropionate (Diprosone) 0.05 % lotion APPLY A FEW DROPS OF LOTION TO THE AFFECTED AREA(S) TOPICALLY TWICE DAILY IN THE MORNING AND AT BEDTIME. RUB IN GENTLY AND COMPLETELY. 60 mL 4 Active sodium chloride ([place]) 0.65 % nasal spray ADMINISTER 1 SPRAY INTO EACH NOSTRIL IF NEEDED FOR CONGESTION 15 mL 2 4 Active cyanocobalamin (Vitamin B-12) 1000 MCG tabletIndication s:Essential hypertension Take 1 tablet by mouth once daily 90 tablet 4 Active acyclovir (Zovirax) 400 MG tabletIndication s:Herpes TAKE 1 TABLET BY MOUTH EVERY 12 HOURS 180 tablet 1 4 Active amLODIPine (Norvasc) 5 MG tabletIndication s:Bilateral leg edema TAKE 1 TABLET BY MOUTH IN THE MORNING 90 tablet 1 4 Active EQ All Day Allergy Relief 10 MG tablet TAKE 1 TABLET BY MOUTH ONCE DAILY FOR ALLERGIES 90 tablet 1 4 Active Cholecalciferol (Vitamin D) 50 MCG (2000 UT) capsule TAKE 1 CAPSULE BY MOUTH ONCE EVERY DAY 90 capsule 1 4 Active citalopram (CeleXA) 20 MG tablet TAKE 2 TABLETS BY MOUTH ONCE DAILY 60 tablet 3 4 Active MAGnesium-Oxide 400 (240 Mg) MG tablet Take 1 tablet by mouth once daily 90 tablet 1 4 Active omega-3 acid ethyl esters (Lovaza) 1 g capsule Take 1 g by mouth Once per day. Active Ascorbic Acid (vitamin C) 250 MG tablet Take 250 mg by mouth Once per day. Active losartan (Cozaar) 100 MG tablet Take 1 tablet (100 mg) by mouth Once per day. 90 tablet 3 5 026 Active losartan (Cozaar) 50 MG tabletIndication s:Essential hypertension Take 1 tablet by mouth once daily 90 tablet 1 4 025 Discontin ued(Dose adjustmen t) Active Problems Problem Noted Date Diagnosed Date Hair loss 05/29/2024 Screening for lung cancer 05/08/2024 Overview (05/08/2024): LDCT re-referred 05/08/24 Postprocedural hypoparathyroidism 04/07/2024 History of trichomoniasis 08/23/2023 Depression with anxiety 04/30/2023 Assessment & Plan (05/29/2024 9:43 AM EST): Further services needed, but declined , Behavioral Health Integration Plan Patient Self Plan Patient to utilize skills provided in intervention , Patient to reach out to [facility] team as needed, Comply with medication , and Patient to reach out to [facility] as needed. Patient declined referrals for MH services; will connect with clinician during next medical appointment if needed. Assessment & Plan (05/05/2023 9:45 AM EST): During IBH Consult Tali presenting with depressed mood, loss of interests/pleasure , changes in sleep difficulty falling asleep, trouble concentrating, thoughts of worthlessness or guilt, fatigue/loss of energy, inappropriate guilt , worthlessness , difficulty concentrating and excessive worry/anxiety, difficulty controlling worry, restless/keyed up/On edge, easily fatigued, difficulty concentrating/Mind going blank , and irritability; for a period of 18+ mo, for all symptoms in the context of , relationship issues, and housing. Tali experiences anxiety symptoms on and off; housing instability and relationship with partner exacerbates symptoms. Patient reported feeling depressed since she was a kid; able to manage sx. PLAN: (check all that apply) Further services needed, but declined , Behavioral Health Integration Plan Patient Self Plan Patient to utilize skills provided in intervention , Patient to reach out to [facility] team as needed, Comply with medication , and Patient to reach out to [facility] as needed. Patient declined referrals for MH services; will connect with clinician during next medical appointment if needed. Overweight (BMI 25.0-29.9) 04/30/2023 Hx of antibiotic allergy 04/30/2023 Skin tag 04/30/2023 Abdominal wall mass 04/30/2023 Health care maintenance 05/20/2022 Overview (11/25/2022): Bilateral Screening Mammo BIRADS 0, inconclusive on 09/04/22 R Breast diagnostic mammo w/ US BIRADS 3 on 09/16/22; repeat 6 months Chronic pain 05/15/2022 Genital herpes simplex 05/15/2022 Overview (05/20/2022): Treats with prophylaxis acyclovir History of parathyroidectomy 05/15/2022 Overview (05/20/2022): 2008, affecting Right parathyroid glands Essential hypertension 05/15/2022 Assessment & Plan (05/29/2024 9:51 AM EST): -Her Losartan dose will be increased to 100 mg. If her at home BP readings are <130 she will only take 50 mg Losartan Migraine with aura 05/15/2022 Positive QuantiFERON-TB Gold test 05/15/2022 Tobacco dependence syndrome 05/15/2022 Overview (11/20/2022): Smoke 1 ppd x 20 years + Smoking cessation discussed Cutting back Failed chantix, discontinue Will Rx Wellbutrin 150 mg daily Assessment & Plan (05/29/2024 9:44 AM EST): -Smoking cessation encouraged Assessment & Plan (11/20/2022 4:45 PM EDT): Failed chantix, discontinue Will Rx Wellbutrin 150 mg daily, discussed monitor for Serotonin syndrome symptoms. Confirmed with psychopharmacology book that it is a supported augmenting medication. Also safe with mirtazepine. 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 Requests natural remedy Rx evening primrose oil again Educated pt pharmacy might still not fill, may need to buy OTC Hyperlipidemia 10/23/2020 Encounters Date Type Department Care Team Description 05/29/2024 9:00 AM EST Office Visit [facility] [address] [place] [phone] Gilda Maldonado MD Routine general medical examination at a health care facility (Primary Dx); Essential hypertension; Hair loss; Screening for diabetes mellitus; Screening for lipid disorders; Vitamin deficiency; Skin tag; Dietary counseling; Exercise counseling; Overweight; Genital herpes simplex, unspecified site; Depression with anxiety; Tobacco dependence syndrome; Migraine with aura and without status migrainosus, not intractable; Neoplasm of parotid gland; Mixed hyperlipidemia; Encounter for immunization 05/29/2024 Travel 05/18/2024 Patient Outreach [facility] [address] [place] [address] [phone] Izzy Apodaca MD Care Coordination ([facility] outreach for SDOH PT-1 and food needs-referral completed /) 05/18/2024 Patient Outreach [address] [phone] Izzy Apodaca MD Pre-visit Planning (SDOH screening positive and Tobacco screening negative) 05/15/2024 10:30 AM EST Clinical Support [address] [phone] Saadia Bettencourt RN Essential hypertension 05/15/2024 Orders Only [address] [address] Izzy Apodaca MD 05/15/[address] [phone] Laura Alexis MA Referral 05/15/2024 Travel 05/09/2024 Telephone [facility] [address] [place] [phone] Mary Argueta ANP ABDOMEN ORDER 05/08/2024 1:00 PM EST Office Visit [facility] [address] [place] [phone] Mary Argueta ANP Acute cough (Primary Dx); Essential hypertension; Screening examination for pulmonary tuberculosis; Positive QuantiFERON-TB Gold test; Screening for lung cancer 05/08/[address] [phone] Mallory Bradford, EDWAR Appointment Request 05/05/[address] [phone] Izzy Apodaca MD Appointment Request 05/01/[address] [phone] Izzy Apodaca MD Referral 05/01/2024 Travel 04/07/2024 1:45 PM EST Office Visit [address] [phone] Izzy Apodaca MD Postprocedural hypoparathyroidism (CMS/HCC) (Primary Dx); Dietary counseling; Exercise counseling; Essential hypertension; Obesity (BMI 30-39.9); Abdominal wall mass; Depression with anxiety; Health care maintenance; Hx of antibiotic allergy; Tobacco dependence syndrome; Skin tag 04/07/2024 Travel 04/06/2024 Telephone [facility] [address] [place] [address] Izzy Apodaca MD Appointment Request 04/06/2024 Telephone [facility] [address] [place] [address] Izzy Apodaca MD Nurse Triage 04/05/2024 Refill [facility] [address] [place] [address] Izzy Apodaca MD Essential hypertension 03/13/2024 Refill [facility] [address] [place] [address] Izzy Apodaca MD Bilateral leg edema from Last 3 Months Immunizations Name Administration Dates Next Due DT (pediatric) 05/03/2001 Hep A, Adult 05/29/2024 INFLUENZA VACCINE QUADRIVALE NT RECOMBINANT PRESERVATIVE FREE RIV4 02/12/2021 Influenza Whole 03/06/2010,03/12/2008,02/15/2007 Influenza injectable quadriv alent preservative free 03/04/2022,01/09/2020,01/02/2020 Influenza, IIV3, injectable 06/04/2009 Moderna Covid-19 Vaccine 12+ 09/22/2020,08/24/19 21 Pneumococcal Conjugate PCV 20 05/29/2024 TD (adult), 2 Lf tetanus tox oid, preservative free, adsorbed 05/03/2014 Tdap 05/29/2024,07/18/2010 Family History Medical History Relation Name Comments DM2 Father Liver cancer Father alcohol,drug use Father DM2,heart disease Mother breast ca-80s Paternal Grandmother Relation Name Status Comments Father Mother Paternal Grandmother Social History Tobacco Use Types Packs/Day Years Used Date Smoking Tobacco: Every Day Cigarettes 0.3 20 Passive Smoke Exposure: Current Smokeless Tobacco: Current Tobacco Cessation:Ready to Q uit: No; Counseling Given: Yes Comments:Started smoking in 23 y of age ,until now --1 PQT a day ,smoking for 24 years--average smoking 17 cig a day . PQT a year calc 20.4 Alcohol Use Standard Drinks/Week Comments Yes 2 (1 standard drink = 0.6 oz pure alcohol) 1 glass of coctakil a day sometimes 2 Depression Answer Date Recorded Patient Health Questionnaire-9 Score 11 05/29/2024 Patient Health Questionnaire-9 Score 11 05/29/2024 Last PHQ-9: Questionnaire Data Not on file 0 05/29/2024 Housing Stability Answer Date Recorded What is [...] got money to buy more: Never True 05/29/2024 Within the past 12 months,th e food [...] Answer Date Recorded Patient Health Questionnaire-2 Score 3 05/29/2024 Internet Access Answer Date Recorded Internet Access Q1 Yes 05/18/2024 Internet Access Q2 Not on file 05/18/2024 Comments No Sex and Gender Information Value Date Recorded Sex Assigned at Female 03/02/2022 10:22 AM EDT Legal Sex Female 10:22 AM EDT Gender Identity Female 03/02/2022 10:22 AM EDT Sexual Orientation Straight 03/02/2022 10 :22 AM EDT Last Filed Vital Signs Vital Sign Reading Time Taken Comments Blood Pressure 138/90 05/29/2024 9:40 AM EST Pulse 91 05/29/2024 9:03 AM EST Temperature 36.3 ??C (97.3 ??F) 05/29/2024 9:03 AM ES T Respiratory Rate 15 05/29/2024 9:03 AM EST Oxygen Saturation 96% 05/29/2024 9:03 AM EST Inhaled Oxygen Concentration - - Weight 84.9 kg (187 lb 3.2 oz) 05/29/2024 9:03 A M EST Height 170.2 cm (5' 7 ) 05/29/2024 9:03 AM EST Body Mass Index 29.32 05/29/2024 9:03 AM EST Plan of Treatment Upcoming Encounters Date Type Department Care Team (Late st Contact Info) Description 06/27/2024 1:00 PM EST Office Visit [facility] [address] [place] [address] [phone] Lolis Kiran CNM [address], [place] [phone] 08/07/2024 1:00 PM EDT Office Visit [facility] [address] [place] [address] [phone] Izzy Apodaca MD [address] [place], [place] [phone] Health Maintenance Due Date Last Done Comments CT Colonography 1975 Colonoscopy 1973 Colorectal Cancer Screening 1975 FIT DNA/Cologuard 1975 FIT 1975 FOBT 1975 Sigmoidoscopy 1975 Family Planning (PISQ) 1988 Zoster Vaccines (1 of 2) 2023 COVID-19 Vaccine ( season) 2024 09/22/2020, 08/23/2020 Depression Monitoring (PHQ-9) 11/26/2024 05/29/2024, 05/29/2024 Hepatitis A Vaccines (2 of 2 - Risk 2-dose series) 11/26/2024 05/29/2024 Mammogram 05/15/2025 05/15/2024, 05/03, 05/10/2023, Additional history exists Alcohol/Substance Use Screening 05/29/2025 05/29/2024 Depression Screening 05/29/2025 05/29/2024, 05/29/19 25 SDOH Screening 05/29/2025 05/29/2024 Tobacco Screening 05/29/2025 05/29/2024 Lipid Panel 05/29/2029 05/29/2024, 05/05, 05/15/2022, Additional history exists DTaP/Tdap/Td Vaccines (4 - Td or Tdap) 05/29/2034 05/29/2024, 05/03/2014, 07/18/2010 RSV Patients and Patients Aged 60 years or older (1 - 1-dose 75+ series) 2048 HIV Screening Completed 06/02/2023, 05/03, 05/13/2020 Hepatitis C Screening Completed 06/02/2023 , 05/15/2022, 05/13/2020 Cervical Cancer Screening Discontinued HPV/Cotest Discontinued 07/01/2023 Pap Smear Discontinued 07/01/2023, 07/01/2023 Influenza Vaccine Completed 05/09/2024, , 02/12/2021, Additional history exists Pneumococcal Vaccine: Pediatrics (0 to 5 Years) and At-Risk Patients (6 to 64 Years) Completed 05/29/2024 HIB Vaccines Aged Out No longer eligi ble based on patient's age to complete this topic HPV Vaccines Aged Out No longer eligi ble based on patient's age to complete this topic Hepatitis B Vaccines Discontinued IPV Vaccines Aged Out No longer eligi ble based on patient's age to complete this topic Meningococcal Vaccine Aged Out No kervin cherrie eligible based on patient's age to complete this topic RSV under 20 months Aged Out No longe r eligible based on patient's age to complete this topic Rotavirus Vaccines Aged Out No longer eligible based on patient's age to complete this topic Procedures Procedure Name Priority Date/Time Associated Diagnosis Comments CBC WITH AUTO DIFFERENTIAL Routine 05/29/2024 9:50 AM EST Hair loss VITAMIN B12/FOLATE, SERUM PANEL Routine 05/29/2024 9:50 AM EST Vitamin deficiency VITAMIN D,25-OH,TOTAL,IA Routine 05/29/2024 9:50 AM EST Vitamin deficiency LIPID PANEL WITH REFLEX TO DIRECT LDL Routine 05/29/2024 9:50 AM EST Essential hypertension Screening for lipid disorders COMPREHENSIVE METABOLIC PANEL Routine 05/29/2024 9:50 AM EST Essential hypertension HEMOGLOBIN A1C Routine 05/29/2024 9:50 AM EST Screening for diabetes mellitus TSH W/REFLEX TO FT4 Routine 05/29/2024 9 :50 AM EST Hair loss BI MAMMOGRAM SCREENING TOMOSYNTHESIS BILATERAL Routine 05/15/2024 1:30 PM EST T-SPOT(R).TB Routine 05/08/2024 1:47 PM EST Screening examination for pulmonary tuberculosis XR CHEST 2 VIEWS Routine 05/08/2024 1:21 PM EST Screening examination for pulmonary tuberculosis POCT INFLUENZA B (ID NOW RAPID MOLECULAR) Routine 05/08/2024 1:06 PM EST Acute cough POCT INFLUENZA A (ID NOW RAPID MOLECULAR) Routine 05/08/2024 1:06 PM EST Acute cough POCT RAPID COVID ANTIGEN Routine 05/08/2024 1:06 PM EST Acute cough HPV MRNA E6/E7 REFLEX TO HPV 16, 18/45 Routine 07/01/2023 11:44 AM EST IMAGE-GUIDED PAP W/AGE BASED SCR,W/CT/NG/TRICH Routine 07/01/2023 11:44 AM EST Cervical cancer screening Encntr screen for infections w sexl mode of transmiss HEPATITIS C AB W/REFL TO HCV RNA, QN, PCR Routine 06/02/2023 1:39 PM EST Annual physical exam HIV 1/2 ANTIGEN/ANTIBODY, FOURTH GENERATION W/RFL Routine 06/02/2023 1:39 PM EST Annual physical exam from Last 3 Months or Most Recently Relevant to Health Maintenance Results * Vitamin D, 25-Hydroxy, Total, Immunoassay (05/29/2024 9:50 AM EST) Vitamin D 25-OH Total 75.2 >30 ng/mL [facility] Comment:Health Based Referen ce Values*< 20 ng/mL [id number] ng/mL Insufficient> 30 ng/mL Sufficient*Della PEDERSON. N Engl J Med. 2007;357:266-280Care must be taken in interpreting Vitamin D results fromdifferent laboratories and methodologies. Published datademonstrated that results from patients undergoinghemodialysis may show a negative bias when tested withvarious automated 25-OH vitamin D assays when compared toLC-MS/MS.When testing samples from patients whose predominant form ofVitamin D is Vitamin D2, such as patients receiving VitaminD2 supplementation, results that are subtherapeutic shouldbe confirmed with another method such as LC-MS/MS. Blood Venous blood specimen / Unknown 05/29/2024 9:50 AM EST 05/29/2024 11:25 AM EST us Gilda Maldoando MD LAB BLOOD ORDERABLES Final Resul t [facility] [address] [place] [phone] * (ABNORMAL) Vitamin B12 (Cobalamin) and Folate Panel, Serum (05/29/2024 9:50 AM EST) Vitamin B12 1,141(H) 200 - 900 pg/mL [facility] Comment:NORMAL 200-900 PG/ML INDETERMINATE 160-199 PG/ML DEFICIENT < 160 PG/ML Folate 9.8 > or = 4.0 ng/mL [facility] Comment:Reference Values:> o r = 4.0 ng/mL< 4.0 ng/mL suggests folate deficiency Methotrexate, aminopterin and folinic acid(leucovorin) are chemotherapeutic agents whose molecularstructures are similar to folate; therefore, the Architectfolate assay cannot be used for patients using these drugs. Blood 05/29/2024 9:50 AM EST 05/29/2024 11:25 AM EST us Gilda Maldonado MD LAB BLOOD ORDERABLES Final Resul t Performing Organization Address City/[facility]/ZIP Co de Phone Number [facility] [address] [place] [phone] * TSH with Reflex to Free T4 (05/29/2024 9:50 AM EST) TSH reflex Free T4 0.77 0.32 - 4.0 uIU/mL [facility] Blood 05/29/2024 9:50 AM EST 05/29/2024 11:25 AM EST Gilda Maldonado MD LAB BLOOD ORDERABLES Final Resul t Performing Organization Address City/[facility] Co de Phone Number [facility] [address] [place] [phone] * (ABNORMAL) Lipid Panel with Reflex to Direct LDL (05/29/2024 9:50 AM EST) Triglycerides 69 <150 mg/dL [facility] Comment:Desirable Triglyceri de: less than 150 mg/dLBorderline High Triglyceride 150-199 mg/dLHigh Triglyceride: 200-499 mg/dLVery High Triglyceride: greater than or equal to 5OO mg/dL Cholesterol 198 <200 mg/dL [facility] Comment:Desirable Cholestero l: less than 200 mg/dLBorderline High Cholesterol: 200-239 mg/dLHigh Cholesterol: greater than 239 mg/dL LDL Cholesterol Calculated 126(H) <100 mg/dL [facility] Comment:Desirable LDL: less than 100 mg/dLNear Optimal/Above Optimal LDL: 110- 129 mg/dLBorderline High LDL: 130-159 mg/dLHigh LDL: 160-189 mg/dLVery High LDL: greater than or equal to 190 mg/dL HDL Cholesterol 59 >40 mg/dL [facility] Comment:Desirable HDL: great er than 40 mg/dL Note: This HDL assay may give artificially low results in patients with liver disease. Blood 05/29/2024 9:50 AM EST 05/29/2024 11:25 AM EST us Gilda Maldonado MD LAB BLOOD ORDERABLES Final Resul t [facility] [address] [place] [address] [phone] * (ABNORMAL) CBC auto differential (05/29/2024 9:50 AM EST) White Blood Count 6.3 4.8 - 10.8 X10*3/uL [facility] Red Blood Count 4.45 4.20 - 5.50 X10*6/uL [facility] Hemoglobin 13.7 12.0 - 16.0 g/dl [facility] Hematocrit 41.5 37.0 - 47.0 % [facility] Mean Corpuscular Volume 93.3 80.0 - 98.0 fL [facility] Mean Corpuscular Hemoglobin 30.8 27.0 - 33.0 pg [facility] Mean Corpuscular HGB Conc 33.0 31.0 - 35.0 g/dl [facility] Red Cell Distribution Width 12.7 11.0 - 16.0 % [facility] Platelet Count 382 160 - 400 X10*3/uL [facility] Mean Platelet Volume 10.9 9.4 - 12.3 fL [facility] Neutrophils Percent Auto 40.9(L) 45 - 73 % [facility] Imm Gran Pct Auto 0.2 0.0 - 0.4 % [facility] Lymphocytes Percent Auto 45.9(H) 20 - 40 % [facility] Monocytes Percent Auto 6.1 2 - 11 % [facility] Eosinophils Percent Auto 5.1(H) 0 - 4 % [facility] Basophils Percent Auto 1.8 0 - 2 % [facility] NRBC Pct Auto 0.0 0.0 - 0.2 /100WBC [facility] Neutrophils Absolute Auto 2.6 2.0 - 8.3 x10*3/uL [facility] Imm Gran Abs Auto 0.01 0.00 - 0.03 X10*3/uL [facility] Lymphocytes Absolute Auto 2.9 1.2 - 4.9 X10*3/uL [facility] Monocytes Absolute Auto 0.4 0.1 - 1.2 X10*3/uL [facility] Eosinophils Absolute Auto 0.3 0.0 - 0.4 X10*3/uL [facility] Basophils Absolute Auto 0.1 0.0 - 0.2 X10*3/uL [facility] NRBC Abs Auto 0.000 0.0 - 0.012 X10*3/uL [facility] Blood Venous blood specimen / Unknown 05/29/2024 9:50 AM EST 05/29/2024 11:25 AM EST Gilda Maldonado MD LAB BLOOD ORDERABLES Final Resul t Performing Organization Address City/[facility] de Phone Number [facility] [address] [place] [phone] * Hemoglobin A1c (05/29/2024 9:50 AM EST) Hemoglobin A1c 5.1 <6.0 % [facility] Comment:Hemoglobin A1C Refer ence Range Adults: 4.8 - 6.0 % Non diabetic: < 6.0 % Goal: < 7.0 %Additional Action Suggested: > 8.0 %Note: Hemoglobin A1c results are invalid for patients with abnormal amounts of HbF. Blood transfusions may impact the HbA1c concentration in the patient sample. Estimated Average Glucose 100 mg/dL [facility] Comment:eAG = Estimated ave rage glucose which is %A1C expressed asaverage glucose, using the formula of the H7C-NnbppenChjpigw Glucose study (ADAG), Diabetes Care, Vol.31,#8,Dec. 2007 Blood Venous blood specimen / Unknown 05/29/2024 9:50 AM EST 05/29/2024 11:25 AM EST Gilda Maldonado MD LAB BLOOD ORDERABLES Final Resul t [facility] [address] [place] [phone] [phone] * (ABNORMAL) Comprehensive Metabolic Panel (05/29/2024 9:50 AM EST) Sodium 141 135 - 145 mmol/L [facility] Potassium 4.2 3.3 - 5.1 mmol/L [facility] Chloride 111(H) 96 - 108 mmol/L [facility] Carbon Dioxide 25 22 - 29 mmol/L [facility] Anion Gap 9(L) 12 - 20 [facility] Urea Nitrogen (BUN) 11 9 - 16 mg/dL [facility] Creatinine, Serum 0.67 0.5 - 1.4 mg/dL [facility] Estimated Glomerular Filt Rate >60 [facility] Comment:Chronic Kidney Disea se: Estimated GFR < 60 mL/min/1.49r6Txlege Kidney Disease: Estimated GFR < 15 mL/min/1.73m2 Glucose 85 60 - 115 mg/dL [facility] Calcium 8.9 8.4 - 10.2 mg/dL [facility] Bilirubin, Total 0.3 0.0 - 1.0 mg/dL [facility] Aspartate Amino Transferase 22 5 - 31 U/L [facility] Alanine Aminotransferase 20 0 - 31 U/L [facility] Total Protein 7.6 6.5 - 8.0 g/dL [facility] Albumin Level 4.2 3.5 - 5.0 g/dL [facility] Alkaline Phosphatase 72 39 - 117 U/L [facility] Blood Venous blood specimen / Unknown 05/29/2024 9:50 AM EST 05/29/2024 11:25 AM EST us Gilda Maldonado MD LAB BLOOD ORDERABLES Final Resul t Performing Organization Address [facility]/ZIP Co de Phone Number [facility] [address] [place] [phone] [phone] * BI Mammogram Screening Tomosynthesis Bilateral (05/15/2024 1:30 PM EST) Anatomical Region Laterality Modality Breast Bilateral Mammography 05/15/2024 1:30 PM EST Narrative 05/23/2024 4:25 PM EST ? [facility] [place] ? [address] ?[place], [place] [address] ? Mammography Report ? Signed ? Patient: Lewis,Tali B ?MR#: [id number] ?? [id number] ? : 1975 ?Acct:[id number] ? Age/Sex: 48 / F ?ADM Date: 05/15/ ? Loc: HO.MAMMO ? Attending Dr: Izzy Turpin MD ? Ordering Physician: Izzy Apodaca MD ?Re ?? sults: 1Negative ? Date of Service: 05/15/ ?Follow Up: 1 Year From Orig ?? inal Mammogram ? Procedure(s): MM tomosynthesis screening BI ?? Accession Number(s): [id number] ? cc: Izzy Apodaca MD ? EXAMINATION: [...] ??Tierra Faria DO ??05/23/2024 04:22 PM EST ?? RP ? Dictated By: ?Tierra Faria DO ? Signed By: ?<Electronically signed by Tierra Faria, DO in OV> ? 05/23/24 1622 ? DD/ 1330 ? TD/TT: 05/15/24 1345 ? Vb Developer: ? Procedure Note Seema, Image - 05/23/2024 [facility] [address] [place] [address] Mammography Report Signed Patient: Tali Lewis BMR#: [id number] : 1975Acct:[id number] Age/Sex: 48 / FADM Date: 05/15/24 Loc: HO.MAMMO Attending Dr: Izzy Turpin MD Ordering Physician: Izzy Apodaca sults: 1Negative Date of Service: 05/15/24Follow Up: 1 Year From Orig inal Mammogram Procedure(s): MM tomosynthesis screening BI Accession Number(s): [id number] cc: Izzy Apodaca MD EXAMINATION: MM SCREENING [...] Tierra Faria DO 05/23/2024 04:22 PM EST Dictated By: Tierra Faria DO Signed By: <Electronically signed by Tierra Faria DO in OV> 05/23/24 1622 DD/ 1330 TD/TT: 05/15/24 1345 Vb Developer: Izzy Turpin MD IMG BI PROCEDURES Final Result * T-SPOT??.TB (05/08/2024 1:47 PM EST) T Spot TB Negative Negative [facility] Comment:A negative test resu lt does not exclude the possibilityof exposure to or infection with Mycobacteriumtuberculosis (M. tuberculosis). Patients with recentexposure to TB infected individuals exhibiting anegative T-SPOT.TB result should be considered forretesting within 6 weeks or if other relevant clinicalsymptoms indicate. Results from T-SPOT.TB testing mustbe used in conjunction with each individual'sepidemiological history, current medical status,and results of other diagnostic evaluations.The T-SPOT.TB test is qualitative and results arereported as positive, borderline, or negative, giventhat the test controls perform as expected. In linewith the Centers for Disease Control and Prevention's2010 recommendation to report quantitative measurementsalongside the qualitative result, the laboratoryprovides spot counts for informational purposes only.The T-SPOT.TB test should not be interpreted as aquantitative test. TS PANEL A 2 [facility] TS PANEL B 1 [facility] Negative Control Passed [facility] Positive Control Passed [facility] Comment:For additional infor ramses, please refer tohttp://education.Quant the News/faq/COS136(This link is being provided for informational/educational purposes only.)THIS TEST WAS PERFORMED AT:[facility] [id number] [place] [address]YCUHTQVCATRACHITA MOSES MD,PHD 05/08/2024 1:47 PM EST 05/08/2024 4:16 PM EST us [facility] LAB BLOOD ORDERABLES Final Resul t Performing Organization Address [facility]/State/ZIP Co de Phone Number [facility] [address] [place] [address] [phone] * XR Chest 2 Views (05/08/2024 1:21 PM EST) Anatomical Region Laterality Modality Chest Radiographic Aliya ging 05/08/2024 1:21 PM EST Narrative 05/08/2024 1:49 PM EST ?[facility] ?[address] ?[place] [address] ?XRay Report ? Signed ? Patient: Tali Lewis B ?MR#: [id number] ?? [id number] ? : 1975 ?Acct:[id number] ? Age/Sex: 48 / F ?ADM Date: 05/08/24 ? Loc: HO.HHCX ? Attending Dr: Mary Argueta MARKET RISK SPECIALIST ? Ordering Physician: MARY ARGUETA NP ?? Date of Service: 05/08/24 ?? Procedure(s): XR chest 2V ?? Accession Number(s): [id number] ? cc: MARY ARGUETA NP ? EXAMINATION: ??XR CHEST 2 VIEWS ? 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 COMPARISON: Comparison is made with the prior examination dated ?? 03/17/2023. ? FINDINGS: ??PA and lateral views of the chest are submitted. The lungs ?? are expanded and clear. ??There is no pleural effusion, pneumothorax, or ?? pulmonary vascular congestion. ??The heart is normal in size. ??The bones ?? are intact. ? XR/XR chest 2V ?? IMPRESSION: ?? No acute cardiopulmonary abnormality. ? Electronically signed by: ??Dm Cui MD ??05/08/2024 01:47 PM EST ?? RP ? Dictated By: ?Dm Cui MD ? Signed By: ?<Electronically signed by Dm Cui MD in OV> ?05/08/24 1347 ? DD/ 1321 ? TD/TT: 05/08/24 1340 ? Vb Developer: ? 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 FINDINGS: PA and lateral views of the chest are submitted. The lungs are expanded and clear. There is no pleural effusion, pneumothorax, or pulmonary vascular congestion. The heart is normal in size. The bones are intact. XR/XR chest 2V IMPRESSION: No acute cardiopulmonary abnormality. Electronically signed by: Dm Cui MD 05/08/2024 01:47 PM EST Dictated By: Dm Cui MD Signed By: <Electronically signed by Dm Cui MD in OV> 05/08/24 1347 DD/ 1321 TD/TT: 05/08/24 1340 Vb Developer: Mary Argueta ANP IMG XR PROCEDURES Edited Result - Final * Influenza B (ID NOW Rapid Molecular) (05/08/2024 1:06 PM EST) Pathologist [facility] [place] Influenza B Negative Negative, Indeterminate [facility] Swab 05/08/2024 1:06 PM EST [facility] Argueta ANP POINT OF CARE TEST ENTER/EDIT OR DERABLES Final Result Performing Organization Address [facility] de Phone Number [facility] [address] [place] [phone] * Influenza A (ID NOW Rapid Molecular) (05/08/2024 1:06 PM EST) Pathologist [facility] [place] Influenza A Negative Negative, Indeterminate [facility] Swab 05/08/2024 1:06 PM EST [facility] Argueta ANP POINT OF CARE TEST ENTER/EDIT OR DERABLES Final Result Performing Organization Address [facility] de Phone Number [facility] [address] [place] [phone] * POCT Rapid COVID Ag (05/08/2024 1:06 PM EST) [facility] Rapid COVID Ag Negative [facility] Swab 05/08/2024 1:06 PM EST [facility] ANP POINT OF CARE TEST ENTER/EDIT OR DERABLES Final Result Performing Organization Address [facility] de Phone Number [facility] [address] [place] [phone] * (ABNORMAL) Image-Guided Pap with Age-Based Screening??with CT/NG,??Trichomonas (07/01/2023 11:44 AMEST) Pathologist [facility] [place] Trichomonas (NAAT) DETECTED(A) NOT DETECTED [facility] Comment:The analytical perfo rmance characteristics of thisassay have been determined by [facility]. Themodifications have not been cleared or approved bythe FDA. This assay has been validated pursuant to theCLIA regulations and is used for clinical purposes.For additional information, please refer tohttp://Girls Guide To.Quant the News/faq/Trichomonastma(This link is being provided for information/educational purposes only.)THIS TEST WAS PERFORMED AT:[facility] [address] [id number] VELAZQUEZ MD CTNG Ref Lab NOT DETECTED NOT DETECTED [facility] NG Ref Lab NOT DETECTED NOT DETECTED [facility] Pap Vial 07/01/2023 11:4 4 AM EST 07/06/2023 10:15 AM EST Lolis Kiran [facility] CYTOLOGY ORDERABLES F inal Result [facility] [address] [place] [phone] * HPV mRNA E6/E7 w/Reflex to HPV Genotypes 16, 18/45 (07/01/2023 11:44 AM EST) HPV nRNA E6/E7 Not Detected Not Detected [facility] Comment:Methodology: Transcr iption-Mediated AmplificationThis assay detects E6/E7 viral messenger RNA (mRNA) from 14high-risk HPV types (16,18,31,33,35,39,45,51,52,56,58,59,66,68).Cervical sources are required for HPV testing.If a vaginal source from a patient who has had atotal hysterectomy with removal of cervix wassubmitted, please contact the testing laboratoryfor alternative testing options.For additional information, please refer tohttp://Girls Guide To.Quant the News/faq/HUH385n2(This link if provided for information/educational purposes only.)THIS TEST WAS PERFORMED AT:[facility] [address] [id number] VELAZQUEZ MD HPV mRNA E6/E7 TNP [facility] HPV 16 RNA TNP [facility] HPV 18/45 RNA TNP [facility] 07/01/2023 11:4 4 AM EST 07/02/2023 11:30 AM EST us Lolis Kiran [facility] CYTOLOGY ORDERABLES F inal Result Performing Organization Address [facility]/ZIP Co de Phone Number [facility] [address] [place] [phone] [phone] * Hepatitis C Antibody with Reflex to HCV, RNA, Quantitative, Real-Time PCR (06/02/2023 1:39 PM EST) Hepatitis C Antibody Nonreactive Nonreactive [facility] Comment:Antibodies to HCV no t detected; does not exclude early acuteHCV infection. Blood Venous blood specimen / Unknown 06/02/2023 1:39 PM EST 06/02/2023 4:01 PM EST us Izzy Turpin MD LAB BLOOD ORDERAB LES Final Result Performing Organization Address [facility]/ZIP Co de Phone Number [facility] [address] [place] [phone] * HIV-1/2 Antigen and Antibodies, Fourth Generation, with Reflexes (06/02/2023 1:39 PM EST) HIV AB/AG Nonreactive Nonreactive [facility] Comment:HIV-1 p24 Ag and/or HIV-1/HIV-2 Ab not detected.A test result that is nonreactive does not exclude thepossibility of exposure to or infection with HIV-1 and/orHIV-2. Nonreactive results in this assay for individualswith prior exposure to HIV-1 and/or HIV-2 may be due toantigen and antibody levels that are below the limit ofdetection of this assay.The [employer] HIV Ag/Ab Combo assay result andsupplemental assay results should be interpreted inconjunction with the patient's clinical presentation,history and other laboratory results. If the results areinconsistent with clinical evidence, additional testing issuggested to confirm the result. Blood Venous blood specimen / Unknown 06/02/2023 1:39 PM EST 06/02/2023 4:01 PM EST Izzy Turpin MD LAB BLOOD ORDERAB LES Final Result [facility] [address] [place] [phone] from Last 3 Months or Most Recently Relevant to Health Maintenance Insurance [facility] Care Teams Checking Clerk Relationship Specialty Start Date End Date Izzy Apodaca MD [address] [place] [address] [phone] PCP - General Internal Medicine 04/29/23
--- OUTSIDE RECORDS SUMMARY | 2024-05-29 14:15 | XMS_ITS | Encounter Summary ---
Author Organization [employer] Address [address] [facility] 7t [place] [address] Care Team Providers Care Dairy Manager Name Role Phone Izzy Apodaca MD Primary Care Pro vider Reason for Visit * Reason Comments Care Coordination CHW outreach for SDO H PT-1 and food needs-referral completed Encounter Details Date Type Department Care Team (Latest Contact Info) Description 05/18/2024 Patient Outreach [facility] MEDICINE [address] [place] [address] Izzy Apodaca MD [address] [place] [address] Care Coordination (CHW outreach for SDOH PT-1 and food needs-referral completed /) Social History Tobacco Use Types Packs/Day Years [...] as of this encounter Progress Notes * Rj Varela - 05/18/2024 10:40 AM EST CHW Rj Varela, placed outbound call to patient for assistance with SDOH as a referral was placed by the provider. Patient had screened positive for the following SDOH insecurities. No answer atthis time. Patient's name and were not confirmed. CHW left detailed message and provided contact information requesting return call for assistance. Patient educated on extended clinic hours on Mondays through Wednesdays, and Walk-In Urgent Care Located in [facility]. Patient provided with after-hours line for [facility], , which offer night time triage service and option to transfer toon call provider if needed. documented in this encounter Plan of Treatment Upcoming Encounters Date Type Department Care Team (Late st Contact Info) Description 06/27/2024 1:00 PM EST Office Visit [facility] MEDICINE [address] [place], [place] [phone] Lolis Kiran CNM [address] [place], [place] [phone] 08/07/2024 1:00 PM EDT Office Visit [facility] MEDICINE [address] [place], [place] [phone] Izzy Apodaca MD [address] [place] [address] [phone] documented as of this encounter Visit Diagnoses Not on filedocumented in this encounter Additional Health Concerns Assessment Noted Time PHQ-9 Depression Total Score: 17 023 3:17 PM EST documented as of this encounter Care Teams Dairy Manager Relationship Specialty Start Date End Date Izzy Apodaca MD [address] [place] [address] [phone] PCP - General Internal Medicine 04/29/23 documented as of this encounter
--- OUTSIDE RECORDS SUMMARY | 2024-05-29 14:15 | XMS_ITS | Encounter Summary ---
Author Organization [employer] Address [address] [facility] [address] [place] [address] Care Team Providers Care Fire Protection Equipment Technician Name Role Phone Izzy Apodaca MD Primary Care Pro vider Reason for Visit * Reason Onset Date Comments Appointment Request 05/08/2024 Encounter Details Date Type Department Care Team ([facility] st Contact Info) Description 05/08/2024 Telephone [facility] MEDICINE [address] [place], [place] [phone] Mallory Bradford, RN [address] [place] [address] Appointment Request Social History Tobacco Use Types Packs/Day Years [...] as of this encounter Miscellaneous Notes * Telephone Encounter - Mallory Bradford RN - 05/08/2024 3:25 PM EST Telephone call placed to pt. Booked [place] for 05/15/24 with [place] nurses. Please schedule BP check with pt in 1 week. thanks documented in this encounter Plan of Treatment Upcoming Encounters Date Type Department Care Team (Late st Contact Info) Description 06/27/2024 1:00 PM EST Office Visit [facility] MEDICINE [address] [place] [phone] Lolis Kiran CNM [address] [place] [address] 08/07/2024 1:00 PM EDT Office Visit [facility] MEDICINE [address] [place] [phone] Izzy Apodaca MD [address] [place] [address] documented as of this encounter Visit Diagnoses Not on filedocumented in this encounter Additional Health Concerns Assessment Noted Time PHQ-9 Depression Total Score: 17 023 3:17 PM EST documented as of this encounter Care Teams Fire Protection Equipment Technician Relationship Specialty Start Date End Date Izzy Apodaca MD [address] [place] [phone] PCP - General Internal Medicine 04/29/23 documented as of this encounter
--- OUTSIDE RECORDS SUMMARY | 2024-05-29 14:15 | XMS_ITS | Encounter Summary ---
Author Organization [employer] Address [address] [facility] [address] 7t [place] [address] Care Team Providers Care Cylindrical Mixer Name Role Phone Izzy Apodaca MD Primary Care Pro vider Encounter Details Date Type Department Care Team (Latest Contact Info) Description 05/15/2024 Travel Social History Tobacco Use Types Packs/Day [...] Description 06/27/2024 1:00 PM EST Office Visit [facility] MEDICINE [address] [place] [phone] Lolis Kiran CNM [address] [place] [phone] 08/07/2024 1:00 PM EDT Office Visit [address] [address] Izzy Apodaca MD [address] [place] [phone] documented as of this encounter Visit Diagnoses Not on filedocumented in this encounter Additional Health Concerns Assessment Noted Time PHQ-9 Depression Total Score: 17 023 3:17 PM EST documented as of this encounter Care Teams Cylindrical Mixer Relationship Specialty Start Date End Date Izzy Apodaca MD [address] [place] [address] [phone] PCP - General Internal Medicine 04/29/23 documented as of this encounter
--- OUTSIDE RECORDS SUMMARY | 2024-05-29 14:15 | XMS_ITS | Encounter Summary ---
Author Organization [employer] Address [address] [facility] [address] 7[address] [place] [address] Care Team Providers Care Reed Repairer Name Role Phone Izzy Apodaca MD Primary Care Pro vider Encounter Details Date Type Department Care Team ([facility] st Contact Info) Description 10/14/2023 Orders Only [facility] MEDICINE [address] [place], [place] [phone] Lolis Kiran, [place] [address] [place] [address] Social History Tobacco Use Types Packs/Day Years Used Date Smoking Tobacco: Every Day Cigarettes 0.3 20 Smokeless Tobacco: Current Comments:Started smoking in 23 [...] Description 06/27/2024 1:00 PM EST Office Visit [facility] MEDICINE [address] [place] [phone] Lolis Kiran CNM [address] [place] [phone] 08/07/2024 1:00 PM EDT Office Visit [address] [address] Izzy Apodaca MD [address] [place] [phone] documented as of this encounter Visit Diagnoses Not on filedocumented in this encounter Additional Health Concerns Assessment Noted Time PHQ-9 Depression Total Score: 17 023 3:17 PM EST documented as of this encounter Care Teams Reed Repairer Relationship Specialty Start Date End Date Izzy Apodaca MD [address] [place] [phone] PCP - General Internal Medicine 04/29/23 documented as of this encounter
--- OUTSIDE RECORDS SUMMARY | 2024-05-29 14:15 | XMS_ITS | Encounter Summary ---
Author Organization [employer] Address [address] [facility] [address] 7t [place] [address] Care Team Providers Care Medical Appliance Maker Name Role Phone Izzy Apodaca MD Primary Care Pro vider Reason for Visit * Reason Comments RN BP CHECK Encounter Details Date Type Department Care Team (Latest Contact Info) Description 05/15/2024 10:30 AM EST Clinical Support [facility] MEDICINE [address] [place] [address] Saadia Bettencourt RN Essential hypertension Social History Tobacco Use Types Packs/Day Years [...] Sign Reading Time Taken Comments Blood Pressure 140/86 05/15/2024 10:52 AM EST Pulse 83 05/15/2024 10:52 AM EST Temperature - - Respiratory Rate 18 05/15/2024 10:52 AM EST Oxygen Saturation 96% 05/15/2024 10:52 AM EST Inhaled Oxygen Concentration - - Weight - - Height - - Body Mass Index - - documented in this encounter Progress Notes * Saadia Bettencourt RN - 05/15/2024 10:30 AM EST BP CHECK S: Pt here for BP check nurse visit. At last appointment on 05/08/24 pt's BP noted to be 156/102. Recommendations made on that day were to keep a home BP log and return for a BP check in two weeks. If blood pressure is great than 140/90 Losartan will be increased to 100 mg. If the dose is increased the pt will have BMP checked in two weeks. Pt are currently taking Losartan 50 mg and Amlodipine 5 mg. Today, pt denies any blurred vision, shortness of breath, chest pain, or headaches. Pt does confirm that she does experience dizziness upon standing occasionally. Pt reports compliance with BP medication regimen, confirms that BP medications were taken today. O: Left Arm BP 140/86, Pulse 83, RR 18/min, SPO2 96% on room air A: Compliance with BP medication regimen BP at goal of <140/90, Reinforcement of Lifestyle modification including low sodium diet and exercise. P: Pt advised that today's BP check will be sent to Mell Mcdonald for review and advisement. Pt advisedto continue taking meds as directed and follow a low fat/sodium diet and exercise as tolerated. Pt to f/u with PCP as needed. Pt agrees with plan and verbalized understanding. documented in this encounter Plan of Treatment Upcoming Encounters Date Type Department Care Team (Late st Contact Info) Description 06/27/2024 1:00 PM EST Office Visit [facility] MEDICINE [address] [place] [address] [phone] Lolis Kiran CNM [address] [place] [address] 08/07/2024 1:00 PM EDT Office Visit [address] [address] Izzy Apodaca MD [address] [place] [phone] documented as of this encounter Visit Diagnoses Diagnosis Essential hypertension Unspecified essential hypertension documented in this encounter Additional Health Concerns Assessment Noted Time PHQ-9 Depression Total Score: 17 023 3:17 PM EST documented as of this encounter Care Teams Medical Appliance Maker Relationship Specialty Start Date End Date Izzy Apodaca MD [address] [place] [phone] PCP - General Internal Medicine 04/29/23 documented as of this encounter
--- OUTSIDE RECORDS SUMMARY | 2024-05-29 14:15 | XMS_ITS | Encounter Summary ---
Author Organization [employer] Address [address] [facility] 7 [place] [address] Care Team Providers Care Recreation Program Specialist Name Role Phone Abby Sky Primary Care Provider [phone] Izzy Apodaca MD Primary Care Pro vider Reason for Visit * Reason Comments Med Refill Encounter Details Date Type Department Care Team (Late Contact Info) Description 02/24/2023 Refill [facility] MED[facility] [address] [place] [phone] Abby Sky FNP [address] [place] [address] Dept [place] [address] Social History Tobacco Use Types Packs/Day Years [...] Encounters Date Type Department Care Team (Late Contact Info) Description 06/27/2024 1:00 PM EST Office Visit [facility] [address] [place] [phone] Lolis Kiran CNM [address] [place] [address] 08/07/2024 1:00 PM EDT Office Visit [facility] [address] [place], [place] [phone] Izzy Apodaca MD [address] [place] [address] [phone] documented as of this encounter Visit Diagnoses Not on filedocumented in this encounter Additional Health Concerns Assessment Noted Time PHQ-9 Depression Total Score: 0 05/15/19 23 3:24 PM EST documented as of this encounter Care Teams Recreation Program Specialist Relationship Specialty Start Date End Date Abby Sky FNP PCP - General Family Medicine 03/18/23 04/18/23 Izzy Apodaca MD [address] [place] [address] [phone] PCP - General Internal Medicine 04/29/23 documented as of this encounter
--- OUTSIDE RECORDS SUMMARY | 2024-05-29 14:15 | XMS_ITS | Encounter Summary ---
Author Organization [employer] Address [address] [place] [address] Care Team Providers Care Swift Tender Name Role Phone Izzy Apodaca MD Primary Care Pro vider Reason for Visit * Reason Comments Cough Encounter Details Date Type Department Care Team ([facility] st Contact Info) Description 05/08/2024 1:00 PM EST Office Visit [facility] [address] [place], [place] [phone] Mary Argueta ANP [address] [place], [place] [phone] Acute cough (Primary Dx); Essential hypertension; Screening examination for pulmonary tuberculosis; Positive QuantiFERON-TB Gold test; Screening for lung cancer Social History Tobacco Use Types Packs/Day Years [...] Sign Reading Time Taken Comments Blood Pressure 156/102 05/08/2024 1:20 PM EST Pulse 103 05/08/2024 12:57 PM EST Temperature 36.3 ??C (97.4 ??F) 05/08/2024 12:[address] Respiratory Rate 17 05/08/2024 12:57 PM EST Oxygen Saturation 97% 05/08/2024 12:57 PM EST Inhaled Oxygen Concentration - - Weight 83.1 kg (183 lb 3.2 oz) 05/08/2024 12:57 PM EST Height - - Body Mass Index 29.57 04/07/2024 2:04 PM EST documented in this encounter Patient Instructions * Patient Instructions* DANIELLA Nelson - 05/08/2024 1:00 PM EST Images from the original note were not included. If your blood pressure remains above 140/90 regularly, recommend we increase your losartan to 100mgdaily. If we do this, recommend we check your renal function 2 weeks after dose increase. The ideal blood pressure would be < 130/80 ( normal is < 120/80). For your blood pressure, it is recommended to eat a low salt diet, get regular exercise, check your blood pressure at home, and take medications as prescribed. If you smoke, please decrease or quit. Call clinic if blood pressure is frequently >150/90. Go to ED/call 911 if > 170/100 and having symptoms that could include headache, visual changes, chest pain, altered mental status or shortness of breath. documented in this encounter Progress Notes * DANIELLA Nelson - 05/08/2024 1:00 PM EST Tali Lewis is 48 y.o. patient here today for sick visit. PMH incl HTN, smoking Smoked 1/2 ppd until last 15 years and started w/ 1 PPD. Started smoking at age 26. Cough Pertinent negatives include no fever. Actually denies cough - here today b/c needs TB test and chest XR for work. Has h/o abnormal quant gold. 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 BP here today elevated. Rx'd losartan 50mg and amlodipine 5mg. Taking both at home. Not checking BPregularly. Does not eat a lot of salt. Lots of stress last few days. Smokes 1 ppd Review of Systems Constitutional: Negative for diaphoresis, fatigue, fever and unexpected weight change. Eyes: Negative for visual disturbance. Respiratory: Negative for cough. Neurological: Negative for dizziness. 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 Constitutional: General: She is not in acute distress. Appearance: Normal appearance. She is not ill-appearing. HENT: Head: Normocephalic and atraumatic. Nose: No congestion. Eyes: General: No scleral icterus. Extraocular Movements: Extraocular movements intact. Pupils: Pupils are equal, round, and reactive to light. Cardiovascular: Rate and Rhythm: Normal rate and regular rhythm. Pulmonary: Effort: Pulmonary effort is normal. No accessory muscle usage or respiratory distress. Neurological: Mental Status: She is alert and oriented to person, place, and time. Gait: Gait normal. Psychiatric: Mood and Affect: Mood normal. Behavior: Behavior normal. Diagnoses and all orders for this visit: Acute cough Denies cough to provider. - POCT Rapid COVID Ag - Influenza A (ID NOW Rapid Molecular) - Influenza B (ID NOW Rapid Molecular) Essential hypertension No change to meds today but reviewed w/ pt target BP and gave log. If remains elevated, increase [id number] losartan (has 50mg tabs at present), and let us know. RN visit 1 week to review log. If remains > 140/90 most BP, increase losartan to 100mg, cont amlodipine 5mg, and check BMP 2 weeks after increase. Got BLE edema with 10mg amlodipine dose in past. Screening examination for pulmonary tuberculosis - T-SPOT??.TB; Future - XR Chest 2 Views; Future Positive QuantiFERON-TB Gold test Repeat T-spot for work and check XR given h/o positive test in past Screening for lung cancer Comments: LDCT re-referred 05/08/24 documented in this encounter Miscellaneous Notes * Result Encounter Note - DANIELLA Nelson - 05/08/2024 1:00 PM EST Dear Tali Lewis, Your X-ray result was normal. Please contact our office if you have any questions. Take care, Mary BREWER documented in this encounter Plan of Treatment Upcoming Encounters Date Type Department Care Team (Late st Contact Info) Description 06/27/2024 1:00 PM EST Office Visit [facility] [address] [place] [phone] Lolis Kiran CNM [address] [place] [phone] 08/07/2024 1:00 PM EDT Office Visit [facility] [address] [place] [address] Izzy Apodaca MD [address] [place], [place] [phone] documented as of this encounter Procedures Procedure Name Priority Date/Time Associated Diagnosis Comments T-SPOT(R).TB Routine 05/08/2024 1:47 PM EST Screening [...] Routine 05/08/2024 1:06 PM EST Acute cough documented in this encounter Results * T-SPOT??.TB (05/08/2024 1:47 PM EST) [facility] T Spot TB Negative Negative [facility] Comment:A negative test resu lt does [...] as aquantitative test. TS PANEL A 2 [facility] TS PANEL B 1 [facility] Negative Control Passed [facility] Positive Control Passed [facility] Comment:For additional infor ramses, please refer tohttp://education.BeSmart/faq/OUU866(This link is being provided for informational/educational purposes only.)THIS TEST WAS PERFORMED AT:[facility] [place] [address]LSTSIKYCATRACHITA MOSES MD,PHD 05/08/2024 1:47 PM EST 05/08/2024 4:16 PM EST us Mary Argueta [facility] BLOOD ORDERABLES Final Resul t [facility] [address] [place] [phone] * XR Chest 2 Views (05/08/2024 1:21 PM EST) Anatomical Region Laterality Modality Chest Radiographic Aliya ging 05/08/2024 1:21 PM EST Narrative 05/08/2024 1:49 PM EST ?[facility] ?[address] ?[place] [address] ?XRay Report ? Signed ? Patient: Tali Lewis B ?MR#: [id number] ?? [id number] ? : 1975 ?Acct:[id number] ? Age/Sex: 48 / F ?ADM Date: 05/08/24 ? Loc: HO.HHCX ? Attending Dr: Mary Argueta SEPARATOR OPERATOR [employer] ? Ordering Physician: MARY ARGUETA NP ?? Date of Service: 05/08/24 ?? Procedure(s): XR chest 2V ?? Accession Number(s): [id number] ? cc: MARY ARGUETA NP ? EXAMINATION: [...] DD/ 1321 ? TD/TT: 05/08/24 1340 ? Sp[employer]dra[employer]: ? Procedure Note Donotkeiinterpreter, Image - 05/08/[address] [address] XRay Report Signed Patient: Tali Lewis BMR#: [id number] : 1975Acct:[id number] Age/Sex: 48 / FADM Date: 05/08/24 Loc: HO.HHCX Attending Dr: Mary Argueta NP Ordering Physician: MARY ARGUETA NP Date of Service: 05/08/24 Procedure(s): XR chest 2V Accession Number(s): [id number] cc: MARY ARGUETA NP EXAMINATION: XR CHEST [...] 05/08/24 1347 DD/ 1321 TD/TT: 05/08/24 1340 [employer]: Mary Argueta ANP IMG XR PROCEDURES Edited Result - Final * Influenza B (ID NOW Rapid Molecular) (05/08/2024 1:06 PM EST) [facility] Influenza B Negative Negative, Indeterminate [facility] Swab 05/08/2024 1:06 PM EST Mary Argueta ANP POINT OF CARE TEST ENTER/EDIT OR DERABLES Final Result Performing Organization Address [facility] Co de Phone Number [facility] [address] [place] [phone] * Influenza A (ID NOW Rapid Molecular) (05/08/2024 1:06 PM EST) [facility] Influenza A Negative Negative, Indeterminate [facility] Swab 05/08/2024 1:06 PM EST Mary Argueta ANP POINT OF CARE TEST ENTER/EDIT OR DERABLES Final Result Performing Organization Address [facility] Co de Phone Number [facility] [address] [place] [phone] * POCT Rapid COVID Ag (05/08/2024 1:06 PM EST) [facility] Rapid COVID Ag Negative [facility] Swab 05/08/2024 1:06 PM EST Mary Argueta ANP POINT OF CARE TEST ENTER/EDIT OR DERABLES Final Result Performing Organization Address [facility] de Phone Number [facility] [address] [place] [phone] documented in this encounter Visit Diagnoses Diagnosis Acute cough- Primary Essential hypertension Unspecified essential hypertension Screening examination for pulmonary tuberculosis Positive QuantiFERON-TB Gold test Screening for lung cancer documented in this encounter Additional Health Concerns Assessment Noted Time PHQ-9 Depression Total Score: 17 12/2 023 3:17 PM EST documented as of this encounter Care Teams Swift Tender Relationship Specialty Start Date End Date Izzy Apodaca MD [address] [place] [phone] PCP - General Internal Medicine 04/29/23 documented as of this encounter
--- OUTSIDE RECORDS SUMMARY | 2024-05-29 14:15 | XMS_ITS | Encounter Summary ---
Author Organization [employer] Address [address] [facility] 7t [place] [address] Care Team Providers Care Rn Palliative Care Name Role Phone Izzy Apodaca MD Primary Care Pro vider Reason for Visit * Reason Onset Date Comments Appointment Request 05/05/2024 Encounter Details Date Type Department Care Team ([facility] st Contact Info) Description 05/05/2024 Telephone [facility] [address] [place] [address] Izzy Apodaca MD [address] [place] [address] Appointment Request Social History Tobacco Use Types [...] encounter Miscellaneous Notes * Telephone Encounter - Tahira Christine - 05/05/2024 1:48 PM EST Tc from pt requesting call back to schedule physical appt. documented in this encounter Plan of Treatment Upcoming Encounters Date Type Department Care Team (Late st Contact Info) Description 06/27/2024 1:00 PM EST Office Visit [address] [phone] Lolis Kiran CNM [address] [place] [phone] 08/07/2024 1:00 PM EDT Office Visit [address] [phone] Izzy Apodaca MD [address] [place], [place] [phone] documented as of this encounter Visit Diagnoses Not on filedocumented in this encounter Additional Health Concerns Assessment Noted Time PHQ-9 Depression Total Score: 17 023 3:17 PM EST documented as of this encounter Care Teams Rn Palliative Care Relationship Specialty Start Date End Date Izzy Apodaca MD [address] [place] [phone] PCP - General Internal Medicine 04/29/23 documented as of this encounter
--- OUTSIDE RECORDS SUMMARY | 2024-05-29 14:15 | XMS_ITS | Encounter Summary ---
Author Organization [employer] Address [address] [facility] [address] [facility] [address] [place] [address] Care Team Providers Care Pressure Vessel Inspector Name Role Phone Izzy Apodaca MD Primary Care Pro vider Encounter Details Date Type Department Care Team (Latest Contact Info) Description 05/29/2024 Travel Social History Tobacco Use Types Packs/Day [...] Description 06/27/2024 1:00 PM EST Office Visit [facility] [address] [place] [phone] Lolis Kiran CNM [address] [place] [phone] 08/07/2024 1:00 PM EDT Office Visit [address] [address] Izzy Apodaca MD [address] [place] [phone] documented as of this encounter Visit Diagnoses Not on filedocumented in this encounter Additional Health Concerns Assessment Noted Time PHQ-9 Depression Total Score: 11 025 9:41 AM EST documented as of this encounter Care Teams Pressure Vessel Inspector Relationship Specialty Start Date End Date Izzy Apodaca MD [address] [place] [phone] PCP - General Internal Medicine 04/29/23 documented as of this encounter
--- OUTSIDE RECORDS SUMMARY | 2024-05-29 14:15 | XMS_ITS | Encounter Summary ---
Author Organization [employer] Address [address] [facility] 7t [place] [address] Care Team Providers Care Russian History Professor Name Role Phone Izzy Apodaca MD Primary Care Pro vider Reason for Visit * Reason Onset Date Comments US ABDOMEN ORDER 05/09/2024 Encounter Details Date Type Department Care Team ([facility] st Contact Info) Description 05/09/2024 Telephone [employer] [address] [place] [address] Mell Mcdonald, DANIELLA [address] [place] [address] US ABDOMEN ORDER Social History Tobacco Use Types Packs/Day Years [...] encounter Miscellaneous Notes * Telephone Encounter - Liza Bartlett - 05/09/2024 12:59 PM EST Incoming fax from [facility]. To rule out a possible hernia, order should state US Abdomen Limited. Pleasereview and update order accordingly. documented in this encounter Plan of Treatment Upcoming Encounters Date Type Department Care Team (Late st Contact Info) Description 06/27/2024 1:00 PM EST Office Visit [facility] [address] [place] [phone] Lolis Kiran CNM [address] [place] [phone] 08/07/2024 1:00 PM EDT Office Visit [facility] [address] [place] [phone] Izzy Apodaca MD [address] [place] [phone] documented as of this encounter Visit Diagnoses Not on filedocumented in this encounter Additional Health Concerns Assessment Noted Time PHQ-9 Depression Total Score: 17 023 3:17 PM EST documented as of this encounter Care Teams Russian History Professor Relationship Specialty Start Date End Date Izzy Apodaca MD [address] [place] [phone] PCP - General Internal Medicine 04/29/23 documented as of this encounter
--- OUTSIDE RECORDS SUMMARY | 2024-05-29 14:15 | XMS_ITS | Encounter Summary ---
Author Organization [employer] Address [address] [place] [address] Care Team Providers Care Lawyer Name Role Phone Izzy Apodaca MD Primary Care Pro vider Encounter Details Date Type Department Care Team ([facility] st Contact Info) Description 05/29/2024 9:00 AM EST Office Visit [facility] [address] [place], [place] [phone] Gilda Maldonado MD [address] [place] [address] Routine general medical examination at a health care facility (Primary Dx); Essential hypertension; Hair loss; Screening for diabetes mellitus; Screening for lipid disorders; Vitamin deficiency; Skin tag; Dietary counseling; Exercise counseling; Overweight; Genital herpes simplex, unspecified site; Depression with anxiety; Tobacco dependence syndrome; Migraine with aura and without status migrainosus, not intractable; Neoplasm of parotid gland; Mixed hyperlipidemia; Encounter for immunization Social History Tobacco Use Types Packs/Day Years [...] Mass Index 29.32 05/29/2024 9:03 AM EST documented in this encounter Miscellaneous Notes * Assessment & Plan Note - Kan Livingston - 05/29/2024 9:51 AM ESTAssociated Problem(s): Essential hypertension -Her Losartan dose will be increased to 100 mg. If her at home BP readings are <130 she will only take 50 mg Losartan * Assessment & Plan Note - Kan Livingston - 05/29/2024 9:44 AM ESTAssociated Problem(s): Tobacco dependence syndrome -Smoking cessation encouraged * Assessment & Plan Note - Kan Livingston - 05/29/2024 9:43 AM ESTAssociated Problem(s): Depression with anxiety Further services needed, but declined , Behavioral Health Integration Plan Patient Self Plan Patient to utilize skills provided in intervention , Patient to reach out to [facility] team as needed, Complywith medication , and Patient to reach out to [facility] as needed. Patient declined referrals for MH services; will connect with clinician during next medical appointment if needed. documented in this encounter Plan of Treatment Upcoming Encounters Date Type Department Care Team (Late st Contact Info) Description 06/27/2024 1:00 PM EST Office Visit [facility] [address] [place] [phone] Lolis Kiran CNM [address] [place] [phone] 08/07/2024 1:00 PM EDT Office Visit [facility] [address] [place] [phone] Izzy Apodaca MD [address] [place] [phone] Scheduled Orders Name Type Priority Associated Diagnoses Orde r Schedule Albumin, Random Urine W/Creatinine Lab Routine Essential hypertension Expected: 05/29/2024 (Approximate), Expires: 05/29/2025 documented as of this encounter Procedures Procedure Name Priority Date/Time Associated Diagnosis Comments VITAMIN D,25-OH,TOTAL,IA Routine 05/29/2024 9:50 AM EST Vitamin deficiency VITAMIN B12/FOLATE, SERUM PANEL Routine 05/29/2024 9:50 AM EST Vitamin deficiency TSH W/REFLEX TO FT4 Routine 05/29/2024 9 :50 AM EST Hair loss LIPID PANEL WITH REFLEX TO DIRECT LDL Routine 05/29/2024 9:50 AM EST Essential hypertension Screening for lipid disorders CBC WITH AUTO DIFFERENTIAL Routine 05/29/2024 9:50 AM EST Hair loss HEMOGLOBIN A1C Routine 05/29/2024 9:50 AM EST Screening for diabetes mellitus COMPREHENSIVE METABOLIC PANEL Routine 05/29/2024 9:50 AM EST Essential hypertension documented in this encounter Results * (ABNORMAL) CBC auto differential (05/29/2024 9:50 AM EST) White Blood Count 6.3 4.8 - 10.8 X10*3/uL [facility] Red Blood Count 4.45 4.20 - 5.50 X10*6/uL [facility] Hemoglobin 13.7 12.0 - 16.0 g/dl [facility] Hematocrit 41.5 37.0 - 47.0 % [facility] Mean Corpuscular Volume 93.3 80.0 - 98.0 fL [facility] Mean Corpuscular Hemoglobin 30.8 27.0 - 33.0 pg [facility] Mean Corpuscular HGB Conc 33.0 31.0 - 35.0 g/dl [facility] Red Cell Distribution Width 12.7 11.0 - 16.0 % [facility] Platelet Count 382 160 - 400 X10*3/uL [facility] Mean Platelet Volume 10.9 9.4 - 12.3 fL [facility] Neutrophils Percent Auto 40.9(L) 45 - 73 % [facility] Imm Gran Pct Auto 0.2 0.0 - 0.4 % [facility] Lymphocytes Percent Auto 45.9(H) 20 - 40 % [facility] Monocytes Percent Auto 6.1 2 - 11 % [facility] Eosinophils Percent Auto 5.1(H) 0 - 4 % [facility] Basophils Percent Auto 1.8 0 - 2 % [facility] NRBC Pct Auto 0.0 0.0 - 0.2 /100WBC [facility] Neutrophils Absolute Auto 2.6 2.0 - 8.3 x10*3/uL [facility] Imm Gran Abs Auto 0.01 0.00 - 0.03 X10*3/uL [facility] Lymphocytes Absolute Auto 2.9 1.2 - 4.9 X10*3/uL [facility] Monocytes Absolute Auto 0.4 0.1 - 1.2 X10*3/uL [facility] Eosinophils Absolute Auto 0.3 0.0 - 0.4 X10*3/uL [facility] Basophils Absolute Auto 0.1 0.0 - 0.2 X10*3/uL [facility] NRBC Abs Auto 0.000 0.0 - 0.012 X10*3/uL [facility] Blood Venous blood specimen / Unknown 05/29/2024 9:50 AM EST 05/29/2024 11:25 AM EST us Gilda Maldonado MD LAB BLOOD ORDERABLES Final Resul t [facility] [address] [place] [phone] * (ABNORMAL) Vitamin B12 (Cobalamin) and Folate Panel, Serum (05/29/2024 9:50 AM EST) Vitamin B12 1,141(H) 200 - 900 pg/mL [facility] Comment:NORMAL 200-900 PG/ML INDETERMINATE 160-199 PG/ML DEFICIENT < 160 PG/ML Folate 9.8 > or = 4.0 ng/mL [facility] Comment:Reference Values:> o r = 4.0 ng/mL< 4.0 ng/mL suggests folate deficiency Methotrexate, aminopterin and folinic acid(leucovorin) are chemotherapeutic agents whose molecularstructures are similar to folate; therefore, the Architectfolate assay cannot be used for patients using these drugs. Blood 05/29/2024 9:50 AM EST 05/29/2024 11:25 AM EST Gilda Maldonado MD LAB BLOOD ORDERABLES Final Resul t Performing Organization Address [facility] Co de Phone Number [facility] [address] [place] [phone] * Vitamin D, 25-Hydroxy, Total, Immunoassay (05/29/2024 9:50 AM EST) Vitamin D 25-OH Total 75.2 >30 ng/mL [facility] Comment:Health Based Referen ce Values*< 20 ng/mL [id number] ng/mL Insufficient> 30 ng/mL Sufficient*Della PEDERSON. N [...] ORDERABLES Final Resul t Performing Organization Address [facility] Co de Phone Number [facility] [address] [place] [phone] * (ABNORMAL) Lipid Panel with Reflex to Direct LDL (05/29/2024 9:50 AM EST) Triglycerides 69 <150 mg/dL [facility] Comment:Desirable Triglyceri de: less than 150 mg/dLBorderline High Triglyceride 150-199 mg/dLHigh Triglyceride: 200-499 mg/dLVery High Triglyceride: greater than or equal to 5OO mg/dL Cholesterol 198 <200 mg/dL [facility] Comment:Desirable Cholestero l: less than 200 mg/dLBorderline High Cholesterol: 200-239 mg/dLHigh Cholesterol: greater than 239 mg/dL LDL Cholesterol Calculated 126(H) <100 mg/dL [facility] Comment:Desirable LDL: less than 100 mg/dLNear Optimal/Above Optimal LDL: 110- 129 mg/dLBorderline High LDL: 130-159 mg/dLHigh LDL: 160-189 mg/dLVery High LDL: greater than or equal to 190 mg/dL HDL Cholesterol 59 >40 mg/dL [facility] Comment:Desirable HDL: great er than 40 mg/dL Note: This HDL assay may give artificially low results in patients with liver disease. Blood 05/29/2024 9:50 AM EST 05/29/2024 11:25 AM EST us Gilda Maldonado MD LAB BLOOD ORDERABLES Final Resul t [facility] [address] [place] [phone] * (ABNORMAL) Comprehensive Metabolic Panel (05/29/2024 9:50 AM EST) Sodium 141 135 - 145 mmol/L [facility] Potassium 4.2 3.3 - 5.1 mmol/L [facility] Chloride 111(H) 96 - 108 mmol/L [facility] Carbon Dioxide 25 22 - 29 mmol/L [facility] Anion Gap 9(L) 12 - 20 [facility] Urea Nitrogen (BUN) 11 9 - 16 mg/dL [facility] Creatinine, Serum 0.67 0.5 - 1.4 mg/dL [facility] Estimated Glomerular Filt Rate >60 [facility] Comment:Chronic Kidney Disea se: Estimated GFR < 60 mL/min/[id number] Kidney Disease: Estimated GFR < 15 mL/min/1.73m2 Glucose 85 60 - 115 mg/dL [facility] Calcium 8.9 8.4 - 10.2 mg/dL [facility] Bilirubin, Total 0.3 0.0 - 1.0 mg/dL [facility] Aspartate Amino Transferase 22 5 - 31 U/L [facility] Alanine Aminotransferase 20 0 - 31 U/L [facility] Total Protein 7.6 6.5 - 8.0 g/dL [facility] Albumin Level 4.2 3.5 - 5.0 g/dL [facility] Alkaline Phosphatase 72 39 - 117 U/L [facility] Blood Venous blood specimen / Unknown 05/29/2024 9:50 AM EST 05/29/2024 11:25 AM EST us Gilda Maldonado MD LAB BLOOD ORDERABLES Final Resul t [facility] [address] [place] [phone] * Hemoglobin A1c (05/29/2024 9:50 AM EST) Hemoglobin A1c 5.1 <6.0 % [facility] Comment:Hemoglobin A1C Refer ence Range Adults: 4.8 - 6.0 % Non diabetic: < 6.0 % Goal: < 7.0 %Additional Action Suggested: > 8.0 %Note: Hemoglobin A1c results are invalid for patients with abnormal amounts of HbF. Blood transfusions may impact the HbA1c concentration in the patient sample. Estimated Average Glucose 100 mg/dL [facility] Comment:eAG = Estimated ave rage glucose which is %A1C expressed asaverage glucose, using the formula of the [id number] Glucose study (ADAG), Diabetes Care, Vol.31,#8,2007 Blood Venous blood specimen / Unknown 05/29/2024 9:50 AM EST 05/29/2024 11:25 AM EST us Gilda Maldonado MD LAB BLOOD ORDERABLES Final Resul t Performing Organization Address [facility] Co de Phone Number [facility] [address] [place] [phone] * TSH with Reflex to Free T4 (05/29/2024 9:50 AM EST) TSH reflex Free T4 0.77 0.32 - 4.0 uIU/mL [facility] Blood 05/29/2024 9:50 AM EST 05/29/2024 11:25 AM EST us Gilda Maldonado MD LAB BLOOD ORDERABLES Final Resul t Performing Organization Address City/[facility] Co de Phone Number [facility] [address] [place] [phone] documented in this encounter Visit Diagnoses Diagnosis Routine general medical examination at a health care facility- Primary Essential hypertension Unspecified essential hypertension Hair loss Unspecified alopecia Screening for diabetes mellitus Screening for lipid disorders Vitamin deficiency Unspecified vitamin deficiency Skin tag Unspecified hypertrophic and atrophic condition of skin Dietary counseling Dietary surveillance and counseling Exercise counseling Overweight Genital herpes simplex, unspecified site Depression with anxiety Dysthymic disorder Tobacco dependence syndrome Tobacco use disorder Migraine with aura and without status migrainosus, not intractable 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
--- OUTSIDE RECORDS SUMMARY | 2024-05-29 14:15 | XMS_ITS | Encounter Summary ---
Author Organization [employer] Address [address] [place] [address] Care Team Providers Care Shellfish Harvester Name Role Phone Izzy Apodaca MD Primary Care Pro vider Reason for Visit * Reason Onset Date Comments Referral 05/15/2024 Encounter Details Date Type Department Care Team ([facility] st Contact Info) Description 05/15/2024 Telephone [facility] [address] [place] [phone] Laura Alexis [place] Referral Social History Tobacco Use Types Packs/Day [...] encounter Miscellaneous Notes * Telephone Encounter - Laura Alexis MA - 05/15/2024 1:15 PM EST T/C-Building Dismantler informed Patient she is Unsure of why They have not called her to schedule helung cancer screening. So we are going to re do the paper work and send it again. Medical Assistantinformed Patient that in order to do that we need a signature. Patient agreed to come in to sign paper and will come in tomorrow 05/16/24. Building Dismantler will have paper on her desk ready for her si gnature. * Telephone Encounter - Laura Alexis [place] - 05/15/2024 1:14 PM EST ----- Message from Mell Mcdonald sent at 05/04/2024 4:36 PM EST ----- Please re-fax LDCT lung cancer screening form for pt - she has not received call from pulm to schedule. Thanks, may need to be updated, I am happy to sign a new form. thanks documented in this encounter Plan of Treatment Upcoming Encounters Date Type Department Care Team (Late st Contact Info) Description 06/27/2024 1:00 PM EST Office Visit [facility] [address] [place], [place] [phone] Lolis Kiran CNM [address] [place] [phone] 08/07/2024 1:00 PM EDT Office Visit [facility] [address] [place], [place] [phone] Izzy Apodaca MD [address] [place], [place] [phone] documented as of this encounter Visit Diagnoses Not on filedocumented in this encounter Additional Health Concerns Assessment Noted Time PHQ-9 Depression Total Score: 17 04/29/ 023 3:17 PM EST documented as of this encounter Care Teams Shellfish Harvester Relationship Specialty Start Date End Date Izzy Apodaca MD [address] [place] [address] [phone] PCP - General Internal Medicine 04/29/23 documented as of this encounter
--- OUTSIDE RECORDS SUMMARY | 2024-05-29 14:15 | XMS_ITS | Encounter Summary ---
Author Organization [employer] Address [address] [facility] [address] [place] [address] Care Team Providers Care Head Of Talent Management Name Role Phone Izzy Apodaca MD Primary Care Pro vider Reason for Visit * Reason Onset Date Comments Appointment Request 04/06/2024 Encounter Details Date Type Department Care Team ([facility] st Contact Info) Description 04/06/2024 Telephone [facility] [address] [place] [phone] Izzy Apodaca MD [address] [place] [address] Appointment Request Social History Tobacco Use Types [...] the past 12 months, has t he [employer] gas, oil or [employer] threatened to shut off services in your [...] encounter Miscellaneous Notes * Telephone Encounter - Yon Belcher - 04/06/2024 3:33 PM EST Tc from pt requesting to r/s Follow up in about 3 months (around 11/22/2023) for f consults ,images., appt was cancelled. Please contact at [phone] documented in this encounter Plan of Treatment Upcoming Encounters Date Type Department Care Team (Late st Contact Info) Description 06/27/2024 1:00 PM EST Office Visit [facility] [address] [place] [address] [phone] Lolis Kiran CNM [address] [place] [address] [phone] 08/07/2024 1:00 PM EDT Office Visit [facility] [address] [place] [phone] Izzy Apodaca MD [address] [place] [address] [phone] documented as of this encounter Visit Diagnoses Not on filedocumented in this encounter Additional Health Concerns Assessment Noted Time PHQ-9 Depression Total Score: 17 023 3:17 PM EST documented as of this encounter Care Teams Head Of Talent Management Relationship Specialty Start Date End Date Izzy Apodaca MD [address] [place] [phone] PCP - General Internal Medicine 04/29/23 documented as of this encounter
--- OUTSIDE RECORDS SUMMARY | 2024-05-29 14:15 | XMS_ITS | Clinical Summary ---
Author Organization [facility] Address [address] [place] [address] Care Team Providers Care Battery Parts Assembler Name Role Phone Pcp, No Primary Care Provider Unavailabl e Social History Tobacco Use Types Packs/Day Years Used Date Smoking Tobacco: Never Assessed Sex and Gender Information Value Date Recorded Sex Assigned at Not on file Gender Identity Not on file Sexual Orientation Not on file Plan of Treatment Health Maintenance Due Date Last Done Comments Hepatitis C Virus Screening 1973 Pneumococcal Vaccine: Pediat yan (0-5 Years) and At-Risk Patients (6 to 49 Years) (1 of 2 - PCV) 1979 HIV Screening 1986 DTaP/Tdap/Td Vaccines (1 - Tdap) 1992 Hepatitis B Vaccines (1 of 3 - 19+ 3-dose series) 1992 Pneumococcal Vaccines 50+ (1 of 2 - PCV) 1992 Pap Smear (Ages 21-65) 1994 Mammogram 2013 Colonoscopy 2018 Zoster (Shingles) Vaccine (1 of 2) 2023 Influenza Vaccine 12/02/2023 03/06/2010, , 03/12/2008, Additional history exists COVID-19 Vaccine ( - 2023-2 5 season) 2024 Care Teams Battery Parts Assembler Relationship Specialty Start Date End Date Pcp, No [address] [place] [address] PCP - General 10/06/22
== END 2024-05-29 09:47 | disposition home or self-care (01) ==
LOC: HO.HHCL 09:46
PROVIDERS: Visit Provider Family Medicine
DX: L65.9 Nonscarring hair loss, unspecified (principal); Z13.1 Encounter for screening for diabetes mellitus; I10 Essential (primary) hypertension; Z13.220 Encounter for screening for lipoid disorders; E56.9 Vitamin deficiency, unspecified
CPT/HCPCS: 36415; 80053; 80061; 82306; 82607; 82746; 83036; 84443; 85025

== ENCOUNTER 2024-05-29 10:08 | Outpatient (REF) | payer MEDICAID, SELFPAY ==
--- NOTE | ~2024-05-29 | US_ITS ---
CLINICAL HISTORY: discomfort left abd wall, r o hernia, w valsalva please Ultrasound periumbilical abdominal wall Comparison: None Findings: No sonographic abnormalities identified. No ventral hernia identified. Impression: No sonographic abnormality or hernia This document has been electronically signed by: Baudilio Yost MD on 05/29/2024 21:21:56
--- OUTSIDE RECORDS SUMMARY | 2024-05-29 14:42 | XMS_ITS | Clinical Summary ---
Author Organization [facility] Address [address] [place] [address] Care Team Providers Care Multimedia Instructional Designer Name Role Phone Pcp, No Primary Care [...] - 2023-2 5 season) 2024 Care Teams Multimedia Instructional Designer Relationship Specialty Start Date End Date Pcp, No [address] [place] [address] PCP - General 10/06/22
== END 2024-05-29 10:09 | disposition home or self-care (01) ==
LOC: HO.US 10:08
PROVIDERS: PCP Student in an Organized Health Care Education/Training Program; Visit Provider Nurse Practitioner Primary Care
DX: R22.2 Localized swelling, mass and lump, trunk (principal)
CPT/HCPCS: 76705

== ENCOUNTER → 2024-05-29 10:10 | Outpatient (BNV) | payer MEDICAID, SELFPAY | PROVIDERS: PCP Student in an Organized Health Care Education/Training Program; Visit Provider Radiology Diagnostic Radiology | DX: R10.9 Unspecified abdominal pain (principal) | CPT/HCPCS: 76705 ==